=== PATIENT | male | born 1965 | race Caucasian/White ===

== ENCOUNTER → 2020-03-14 | Outpatient (REF) | payer BC ==
[2020-03-14 17:36] LABS: BASO % 0.5 % (0.0-1.0); EOS # 0.3 10^3/uL (0.0-0.5); EOS % 3.2 % (0.0-3.0); HEMATOCRIT 49.3 % (42.0-52.0); HEMOGLOBIN 17.3 g/dl (13.5-17.5); LYMPH # 2.2 10^3/uL (1.5-5.0); LYMPH % 25.7 % (24.0-44.0); MEAN CORPUSCULAR HEMOGLOBIN 35.2 pg (27.0-33.0); MEAN CORPUSCULAR HGB CONC 35.1 g/dl (32.0-36.5); MEAN CORPUSCULAR VOLUME 100.2 fl (80.0-96.0); MONO # 0.8 10^3/uL (0.0-0.8); MONO % 8.6 % (0.0-5.0); NEUTROPHILS # 5.4 10^3/uL (1.5-8.5); NEUTROPHILS % 61.2 % (36.0-66.0); PLATELET COUNT, AUTOMATED 233 10^3/uL (150-450); RED BLOOD COUNT 4.92 10^6/uL (4.30-6.10); WHITE BLOOD COUNT 8.7 10^3/uL (4.0-10.0)
[2020-03-14 17:43] LABS: ALT/SGPT 39 U/L (12-78); BILIRUBIN,TOTAL 1.3 MG/DL (0.2-1.0); BLOOD UREA NITROGEN 8 MG/DL (7-18); C REACTIVE PROTEIN QUANTITATIV < 0.30 MG/DL (0.00-0.30); CALCIUM LEVEL 8.9 MG/DL (8.5-10.1); CARBON DIOXIDE LEVEL 27 MEQ/L (21-32); CHLORIDE LEVEL 103 MEQ/L (98-107); GLOMERULAR FILTRATION RATE > 60.0 (>56); GLUCOSE, FASTING 79 MG/DL (70-100); POTASSIUM SERUM 3.9 MEQ/L (3.5-5.1); SODIUM LEVEL 136 MEQ/L (136-145); TOTAL PROTEIN 7.4 GM/DL (6.4-8.2)
[2020-03-14 18:31] LABS: ERYTHROCYTE SEDIMENTATION RATE 2 mm/hr (0-20)
== END ==
LOC: M SFHCRHEU 11:25
PROVIDERS: ATTEND Internal Medicine
DX: M06.09 Rheumatoid arthritis without rheumatoid factor, multiple sites (principal)

== ENCOUNTER → 2020-05-17 | Outpatient (REF) | payer BC ==
[2020-06-22 16:32] LABS: HEMATOCRIT 50.2 % (42.0-52.0); HEMOGLOBIN 17.5 g/dl (13.5-17.5); MEAN CORPUSCULAR HEMOGLOBIN 35.4 pg (27.0-33.0); MEAN CORPUSCULAR HGB CONC 34.9 g/dl (32.0-36.5); MEAN CORPUSCULAR VOLUME 101.6 fl (80.0-96.0); PLATELET COUNT, AUTOMATED 231 10^3/uL (150-450); RED BLOOD COUNT 4.94 10^6/uL (4.30-6.10)
[2020-07-02 14:12] LABS: ALBUMIN 4.1 GM/DL (3.2-5.2); ALT/SGPT 49 U/L (12-78); BILIRUBIN,TOTAL 1.4 MG/DL (0.2-1.0); BLOOD UREA NITROGEN 8 MG/DL (7-18); CALCIUM LEVEL 9.2 MG/DL (8.5-10.1); CARBON DIOXIDE LEVEL 30 MEQ/L (21-32); CHLORIDE LEVEL 104 MEQ/L (98-107); CREATININE FOR GFR 0.85 MG/DL (0.70-1.30); GLOMERULAR FILTRATION RATE > 60.0 (>56); GLUCOSE, FASTING 101 MG/DL (70-100); POTASSIUM SERUM 4.3 MEQ/L (3.5-5.1); SODIUM LEVEL 136 MEQ/L (136-145); TOTAL PROTEIN 7.4 GM/DL (6.4-8.2)
[2020-08-08 14:02] LABS: ERYTHROCYTE SEDIMENTATION RATE 2 mm/hr (0-20)
== END ==
LOC: M SFHCRHEU 08:14
PROVIDERS: ATTEND Internal Medicine Rheumatology
DX: M06.4 Inflammatory polyarthropathy (principal)

== ENCOUNTER → 2020-06-22 | Outpatient (CLI) | payer BC ==
[2020-06-22 14:30] LABS: ALBUMIN 3.6 GM/DL (3.2-5.2); ALT/SGPT 44 U/L (12-78); BILIRUBIN,TOTAL 1.1 MG/DL (0.2-1.0); BLOOD UREA NITROGEN 10 MG/DL (7-18); CARBON DIOXIDE LEVEL 29 MEQ/L (21-32); CHLORIDE LEVEL 104 MEQ/L (98-107); CHOLESTEROL LEVEL 145 MG/DL (<200); CHOLESTEROL RISK RATIO 2.164 (<5); CREATININE FOR GFR 0.99 MG/DL (0.70-1.30); GLOMERULAR FILTRATION RATE > 60.0 (>56); GLUCOSE, FASTING 93 MG/DL (70-100); HDL CHOLESTEROL 67 MG/DL (>40); LDL CHOLESTEROL 63 MG/DL (<100); NON-HDL-C 78 MG/DL; POTASSIUM SERUM 4.4 MEQ/L (3.5-5.1); SODIUM LEVEL 139 MEQ/L (136-145); TOTAL PROTEIN 6.8 GM/DL (6.4-8.2); TRIGLYCERIDES LEVEL 77 MG/DL (<150)
[2020-06-22 15:51] LABS: HEMOGLOBIN A1c 5.1 %
== END ==
LOC: M PLALAB 09:43
PROVIDERS: ATTEND Family Medicine
DX: F10.10 Alcohol abuse, uncomplicated (principal); Z13.1 Encounter for screening for diabetes mellitus; Z13.220 Encounter for screening for lipoid disorders

== ENCOUNTER → 2020-07-12 | Outpatient (CLI) | payer BC ==
--- NOTE | 2020-07-18 09:50 | REP ---
CT CHEST WITHOUT CONTRAST: LOW-DOSE SCREENING EXAM HISTORY: 40-pack year smoking history. COMPARISON: No comparison chest imaging. FINDINGS: Digital preliminary human factors ergonomist radiograph is unremarkable. There is an old healed fracture of the right posterior 11th rib. Lung smith are clear. There is no evidence of pulmonary nodule, mass, or infiltrate. No pleural effusion is seen. IMPRESSION: Lung-RADS Category 1 findings. Repeat screening exam suggested in one year. JASPREETD
== END ==
LOC: M RAD 08:40
PROVIDERS: ATTEND Family Medicine
DX: F17.218 Nicotine dependence, cigarettes, with other nicotine-induced disorders (principal); Z12.2 Encounter for screening for malignant neoplasm of respiratory organs

== ENCOUNTER → 2020-10-22 | Outpatient (CLI) | payer BC ==
[~2020-10-22] MED LIST: ENBR50IN6 IM; FAMO1TAB11 PO; MEDR4PAK PO; SILD50TA2 PO
== END ==
LOC: M LABSMTC 08:07
PROVIDERS: ATTEND Anesthesiology
DX: Z01.812 Encounter for preprocedural laboratory examination (principal); Z20.822 Contact with and (suspected) exposure to COVID-19

== ENCOUNTER 2020-10-27 08:36 | Day surgery (SDC) | payer BC ==
[~2020-10-27] VITALS: Ht 175.3 cm; Wt 86.6 kg
[~2020-10-27 08:36] MED LIST changes: +LIDOCAINE 2% 100MG/5ML SDV (FOR ANES.) As Ordered ONE; +NS 1,000 ML IV ONE; +propofoL 200 MG/20 ML VIAL As Ordered ONE
--- OUTSIDE RECORDS SUMMARY | 2020-10-27 08:39 | CCD | Continuity of Care Document ---
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 10/16/2019 Hydrocele HOSSEIN Hand Onset: 2019 Cyst of epididymis HOSSEIN Hand Onset: 2019 Social History Type Date Description Comments Sex Unknown Tobacco Use Start: Unknown Never Smoked Cigarettes Tobacco Use Start: Unknown Never Smoked Cigars Tobacco Use Start: Unknown Never Smoked A Pipe Tobacco Use Start: Unknown Never Used Smokeless Tobacco ETOH Use Consumes 7 beers per week Tobacco Use Start: Unknown Heavy tobacco smoker (more than 10 cigarettes/day) 1 pack per day Allergies, Adverse Reactions, Alerts Active Allergies Reaction Severity Comments Date NKDA 06/07/2020 NKFA 06/07/2020 NKEA 06/07/2020 Medications Active Medications SIG Qnty Indications Ordering Provide r Date Viagra 50mg Tablets 1 tab by mouth as needed. do not take more than once every 48 hours 6tabs Antonio Cavanaugh M.D. 09/26/2020 Enbrel Mini 50mg/ml Solution Cartr idge 1 injection once every week Unknown Methotrexate 2.5mg Tablets 9 tabs once a week Unknown Methylprednisolone 4mg Tablets Unknown Folic Acid 1mg Tablets 1 by mouth every day Unknown Famotidine 10mg Tablets 10 mg by mouth twice a day Unknown Immunizations Description No Information Available Vital Signs Date Vital Result Comment 09/26/2020 10:34am BP Systolic 128 mmHg BP Diastolic 74 mmHg Heart Rate 62 /min Body Temperature 96.8 F O2 % BldC Oximetry 98 % Weight 196.00 lb Weight 88.906 kg 08/16/2020 10:23am BP Systolic 126 mmHg BP Diastolic 84 mmHg Heart Rate 105 /min Body Temperature 97.5 F Respiratory Rate 20 /min O2 % BldC Oximetry 98 % Results Test Acquired Date Facility Test Result H/L Range Note Inhouse Ua 09/26/2020 In Office Ua Color rust Ua Appearance clear Spec [facility] 1.020 Ua PH Test Strip 5 Leukocytes trace Ua Nitrate neg Ua Protein neg Inhouse Glucose neg Ua Ketones neg Urobilinogen neg Ua Bilirubin + Blood neg Inhouse Ua 08/16/2020 In Office Ua Color yellow Ua Appearance clear Spec [facility] 1.005 Ua PH Test Strip 5 Leukocytes neg Ua Nitrate neg Ua Protein neg Inhouse Glucose neg Ua Ketones neg Urobilinogen neg Ua Bilirubin neg Blood neg Inhouse Ua 06/07/2020 In Office Ua Color nina Ua Appearance clear Spec [facility] 1.010 Ua PH Test Strip 7 Leukocytes neg Ua Nitrate neg Ua Protein trace Inhouse Glucose neg Ua Ketones neg Urobilinogen neg Ua Bilirubin neg Blood neg Xray 06/07/2020 [facility] [address] [id number] [phone] Scrotal <pending> Procedures Description No Information Available Medical Devices Description No Information Available Encounters Description No Information Available Assessments Date Code Description Provider 08/16/2020 N50.3 Cyst of epididymis HOSSEIN [place] 08/16/2020 N43.3 Hydrocele, unspecified HOSSEIN Hand 08/16/2020 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 06/07/2020 F17.210 Nicotine dependence, cigarettes, uncomplicated Antonio Cavanaugh M.D. Plan of Treatment Future Appointment(s):* 11/28/2020 9:45 am - Urology Resource Schedule at [facility] 08/16/2020 - HOSSEIN Hand* N50.3 Cyst of epididymis* Comments:* 54-year-old male with epididymal cysts presents to the clinic ~2 weeks s/p bilateral hydrocelectomy, right epididymal cyst removal, partial right epididymectomy, and removal of left lipoma of the cord for post op follow up.Patient underwent procedure on 08/04/20 and tolerated it well without any difficulties.Today he reports minimal scrotal swelling and induration, otherwise doing well.Physical examination in office today revealed that the surgical incisions are healing well. Induration and mild-moderate swelling noted, left greater than right, consistent with post op changes. Minimal tenderness noted with palpation. Sutures still in place without any signs of infection.Urinalysis in office today is unremarkable.Pathology reveals benign epididymal tissue with dilated tubules containing numerous sperms and fibro- membranous tissue suggest of hydrocele. Post procedure guidelines were discussed in detail with the patient that it will take 6 weeks for complete healing of the site of incision.He was advised to continue Motrin and scrotal support as needed for discomfort.Patient voiced understanding and agreement with the plan of care. Patient will follow up in 6 weeks or as needed for po stoperative wound check. * Follow up:* 6 Weeks * N43.3 Hydrocele, unspecified* Comments:* Same as above. 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 * Follow up:* 6 Weeks Functional Status Description No Information Available Mental Status Description No Information Available Referrals Description No Information Available
--- OUTSIDE RECORDS SUMMARY | 2020-10-27 08:39 | CCD ---
Author Author [facility] Organization [facility] Address Unknown Phone Unavailable Care Team Providers Care Molder Operator Name Role Phone Rhys Betina Unavailable PROBLEMS Type Condition ICD9-CM Code [id number] Code Onset Dates Condition S tatus SNOMED Code Notes Problem Raynaud's disease without gangrene I73.00 Activ e [id number] Problem Tobacco use disorder F17.200 Active 011198408 Problem Inflammatory polyarthritis M06.4 Active 27548 3000 Problem Rheumatoid arthritis of multiple sites w ith 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 factor M06.09 Active 701673280 ALLERGIES No Known Allergies ENCOUNTERS from 1965 to 2020-09-27 Encounter Location Date Provider Diagnosis [facility] Rheumatology [address] [place] [address] Sep, Betina Joiner IMMUNIZATIONS No Information SOCIAL HISTORY Tobacco Use: Social History Observation Description Date Details (start date - stop date) Current Smoker Sex Assigned At : Social History Observation Description Sex Assigned At Unknown Alcohol Screening: Question Answer Notes Did you have a drink containing alcohol in the past year? Ye s Points 4 Interpretation Positive How often did you have six or more drinks on one occas ion in the past year? Less than monthly (1 point) How many drinks did you have on a typica l day when you were drinking in the past year? 1 or 2 (0 points) How often did you have a drink containing alcohol in t he past year? Two to three times per week (3 points) Tobacco Use: Question Answer Notes Are you a: current smoker How many cigarettes a day do you smoke? 11-20 REASON FOR REFERRAL No Information VITAL SIGNS No information MEDICATIONS Medication SIG (Take, Route, Frequency, Duration) Notes Start Da te End Date Status Methotrexate Sodium 2.5 MG 4 tablets as directed Orally Once weekly for 30 Days Mar, Not-Taking Folic Acid 1 MG 1 tablet Orally Once a day for 30 day(s) 0 9 Mar, 2020 Not-Taking Medrol 4 MG 1-2 tablet Orally bid for 30 Active Enbrel Mini 50 MG/ML 1 ml Subcutaneous Once weekly for 90 days Oct, Active Naproxen 500 MG 1 tablet with food or milk as needed Orally every 12 hrs Not-Taking Sulfasalazine 500 MG 1 tablet by mouth twice daily for 30 Days Nov, Not-Taking Hydroxychloroquine Sulfate 200 MG 2 tablets by mouth Daily for 3 0 Days Nov, Not-Taking PROCEDURES No Information RESULTS No Results REASON FOR VISIT Enbrel mini 50mg MEDICAL (GENERAL) HISTORY Type Description Date Medical History scrotal cysts Surgical History Left Ankle 2001 Surgical History scrotal surgery 08/04/2020 Goals Section No Information Health Concerns No Information MEDICAL EQUIPMENT No Information MENTAL STATUS No Information FUNCTIONAL STATUS No Information ASSESSMENTS No Information PLAN OF TREATMENT Medication Medication Name Sig Start Date Stop Date Enbrel Mini 50 MG/ML 1 ml Subcutaneous Once weekly for 90 days 3 0 Oct, 2019 Insurance Providers Payer Name Payer Address Payer Phone Insured Name Patient Relati onship to Insured Coverage Start Date Coverage End Date [employer] PPO [id number] [address] KALANI BYRNES
--- OUTSIDE RECORDS SUMMARY | 2020-10-27 08:39 | CCD ---
Author Author [facility] Organization [facility] Address Unknown Phone Unavailable Care Team Providers Care Environmental Officer Name Role Phone Rhys Betina Unavailable PROBLEMS Type Condition ICD9-CM Code [id number] Code Onset Dates Condition S tatus SNOMED Code Notes Problem Raynaud's disease without gangrene I73.00 Activ e [id number] Problem Tobacco use disorder F17.200 Active 815734741 Problem Inflammatory polyarthritis M06.4 Active 03493 3000 Problem Rheumatoid arthritis of multiple sites w ith 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 factor M06.09 Active 271163243 ALLERGIES No Known Allergies ENCOUNTERS from 1965 to 2020-09-23 Encounter Location Date Provider Diagnosis [facility] Rheumatology [address] [place] [address] Sep, Betina Joiner Rheumatoid arthritis of multiple sites w ith 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 factor M06.09 IMMUNIZATIONS No Information SOCIAL HISTORY Tobacco Use: [...] No Results REASON FOR VISIT Enbrel mini MEDICAL (GENERAL) HISTORY Type Description Date Medical History scrotal cysts Surgical History Left Ankle 2001 Surgical History scrotal surgery 08/04/2020 Goals Section No Information Health Concerns No Information MEDICAL EQUIPMENT No Information MENTAL STATUS No Information FUNCTIONAL STATUS No Information ASSESSMENTS Encounter Date Diagnosis Assessment Notes Treatment Notes Treatm ent Clinical Notes Sep, [facility] with 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 factor (ICD-10 - M06.09) PLAN OF TREATMENT Medication Medication Name Sig Start Date Stop Date Enbrel Mini 50 MG/ML 1 ml Subcutaneous Once weekly for 90 days 3 Oct, 2019 Insurance Providers Payer Name Payer Address Payer Phone Insured Name Patient Relati onship to Insured Coverage Start Date Coverage End Date [facility] [id number] [address] KALANI BYRNES
--- OUTSIDE RECORDS SUMMARY | 2020-10-27 08:40 | CCD ---
Author Author [facility] Organization [facility] Address Unknown Phone Unavailable Care Team Providers Care Merchandising Lead Name Role Phone Rhys Betina Unavailable PROBLEMS Type Condition ICD9-CM Code [id number] Code Onset Dates Condition S tatus SNOMED Code Notes Problem Raynaud's disease without gangrene I73.00 Activ e 018818149 Problem Tobacco use disorder F17.200 Active 382137054 Problem Inflammatory polyarthritis M06.4 Active 03563 3000 Problem Rheumatoid arthritis of multiple sites w ith 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 factor M06.09 Active 645788309 ALLERGIES No Known Allergies ENCOUNTERS from 1965 to 2020-09-19 Encounter Location Date Provider Diagnosis [facility] Rheumatology [address] [place] [address] Sep, Betina Joiner IMMUNIZATIONS No Information SOCIAL [...] Notes Start Da te End Date Status Naproxen 500 MG 1 tablet with food or milk as needed Orally every 12 hrs Not-Taking Folic Acid 1 MG 1 tablet Orally Once a day for 30 day(s) 0 9 Mar, 2020 Not-Taking Medrol 4 MG 1-2 tablet Orally bid for 30 Active Methotrexate Sodium 2.5 MG 4 tablets as directed Orally Once weekly for 30 Days Mar, Not-Taking Enbrel Mini 50 MG/ML 1 ml Subcutaneous Once weekly for 90 day(s) Oct, Active Sulfasalazine 500 MG 1 tablet by mouth twice daily for 30 Days Nov, Not-Taking Hydroxychloroquine Sulfate 200 MG 2 tablets by mouth Daily for 3 0 Days Nov, Not-Taking PROCEDURES No Information RESULTS No Results REASON FOR VISIT Enbrel refill MEDICAL (GENERAL) HISTORY Type Description Date Medical [...] 1 ml Subcutaneous Once weekly for 90 day(s) Oct, Insurance Providers Payer Name Payer Address Payer Phone Insured Name Patient Relati onship to Insured Coverage Start Date Coverage End Date [employer] PPO [id number] [address] KALANI BYRNES
--- OUTSIDE RECORDS SUMMARY | 2020-10-27 08:40 | CCD | Continuity of Care Document ---
Author Author Wade HASKINS Organization Unknown Address [address] [facility], [address] [place] [address] Phone [phone] Care Team Providers Care Sheet Metal Worker Supervisor Name Role Phone Krista Mayers M.D. AUTM [phone] AUTM Unavailable Problems Description No Active Problems Social History Type Date Description Comments Sex Unknown ETOH Use 5 A Week Tobacco Use Start: Unknown Smokes 1 Pack A Day Tobacco Use Start: Unknown Report Cessation Counseling Was Provided Allergies, Adverse Reactions, Alerts Description No Known Drug Allergies Medications Active Medications SIG Qnty Indications Ordering Provide r Date Suprep Bowel Prep Kit 17.5-3.13-1.6GM/177ML Solution take per doctor's bowel prep instructions. 354ml Z12.1 1 Abdiaziz Weiss MD 09/20/[address] take 4 tabs by mouth prior to procedure per instructions. 4tabs Z12.11 Abdiaziz Weiss MD 09/20/2020 Enbrel 50mg/ml Soln Prefill Syring e 1 injection weekly Unknown Medrol 4mg Tablets 1-2 castro ly as needed Unknown Immunizations Description No Information Available Vital Signs Date Vital Result Comment 09/20/2020 1:13pm BP Systolic 128 mmHg BP Diastolic 86 mmHg Height 69 inches 5'9" Weight 195.00 lb BMI (Body Mass Index) 28.8 kg/m2 [place] Body Weight 160 lb Weight 88.452 kg BSA (Body Surface Area) 2.04 m2 Results Description No Information Available Procedures Description No Information Available Medical Devices Description No Information Available Encounters Description No Information Available Assessments Date Code Description Provider 09/20/2020 Z12.11 Encounter for screening for natasha gnant neoplasm of colon CYNTHIA Mihcaels 09/20/2020 K21.9 Gastro-esophageal reflux disease without esophagitis CYNTHIA Michaels Plan of Treatment 09/20/2020 - CYNTHIA Michaels* Z12.11 Encounter for screening for malignant neoplasm of colon * K21.9 Gastro-esophageal reflux disease without esophagitis * * New Medication:* Suprep Bowel Prep Kit 17.5-3.13-1.6 GM/177ML * Dulcolax 5 mg * New Orders:* Colonoscopy, Ordered: 09/20/20 * Comments:* Will arrange for colonoscopy. Reviewed risks and benefits of the procedure, as well as other options, with the patient. Bowel prep procedure was discussed with patient, as well as risks and side effects associated with the bowel prep. Patient verbalized understanding of all of the above and is in agreement to proceed. Patient will seek medical attention for any acute changes. Will monitor. * Follow up:* As scheduled, sooner if needed. Functional Status Description No Information Available Mental Status Description No Information Available Referrals Refer to Reason for Referral Status Appt Date Moy Urbina M.D. COLO SCREENING Scheduled 09/[address] [place] [address], [address] [place] [address] [phone]
--- OUTSIDE RECORDS SUMMARY | 2020-10-27 08:40 | CCD ---
Author Author [facility] Organization [facility] Address Unknown Phone Unavailable Care Team Providers Care Customer Loyalty Representative Name Role Phone Krista Mayers Unavailable PROBLEMS Type Condition ICD9-CM Code WEP68-TK Code Onset Dates Condition S tatus SNOMED Code Notes Problem Inflammatory polyarthritis M06.4 Active 19215 3000 Problem Rheumatoid arthritis of multiple sites w ith 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 factor M06.09 Active 991926467 ALLERGIES No Known Allergies ENCOUNTERS from 1965 to 2020-08-10 Encounter Location Date Provider Diagnosis [address] [address] Aug, Krista Riana Screening for colon cancer Z12.11 IMMUNIZATIONS No Information SOCIAL HISTORY Tobacco Use: [...] many cigarettes a day do you smoke? 11 REASON FOR REFERRAL No Information VITAL SIGNS No information MEDICATIONS Medication SIG (Take, Route, Frequency, Duration) Start Date En d Date Status Medrol 4 MG 1-2 tablet Orally bid for 30 Active Sulfasalazine 500 MG 1 tablet by mouth twice daily for 30 Days 2019 Not-Taking Naproxen 500 MG 1 tablet with food or milk as needed Orally every 1 2 hrs Not-Taking Folic Acid 1 MG 1 tablet Orally Once a day for 30 day(s) Mar, Not-Taking Enbrel Mini 50 MG/ML 1 ml Subcutaneous Once weekly for 30 day(s) Oct, Active Methotrexate Sodium 2.5 MG 4 tablets as directed Orally Once weekly for 30 Days Mar, Not-Taking Hydroxychloroquine Sulfate 200 MG 2 tablets by mouth Daily f or 30 Days Nov, Not-Taking PROCEDURES No Information RESULTS No Results REASON FOR VISIT Colonoscopy referral MEDICAL (GENERAL) HISTORY Type Description Date Medical History scrotal cysts Surgical History Left Ankle 2002 Goals Section No Information Health Concerns No Information MEDICAL EQUIPMENT No Information MENTAL STATUS No Information FUNCTIONAL STATUS No Information ASSESSMENTS Encounter Date Diagnosis Notes Aug, Screening for colon cancer (ICD-10 - Z12 .11) PLAN OF TREATMENT Medication Medication Name Sig Start Date Stop Date Medrol 4 MG 1-2 tablet Orally bid for 30 Next Appt Details Provider Name:Betina Joiner, 2020-08 09:00:00 AM, [address] [place] [address], [address], Insurance Providers Payer Name Payer Address Payer Phone Insured Name Patient Relati onship to Insured Coverage Start Date Coverage End Date [employer] PPO [id number] [address] KALANI BYRNES self
--- OUTSIDE RECORDS SUMMARY | 2020-10-27 08:40 | CCD ---
Author Author [facility] Organization [facility] Address Unknown Phone Unavailable Care Team Providers Care Business Loan Processor Name Role Phone Betina Joiner Unavailable PROBLEMS Type Condition ICD9-CM Code [id number] Code Onset Dates Condition S tatus SNOMED Code Notes Problem Inflammatory polyarthritis M06.4 Active 89134 3000 Problem Rheumatoid arthritis of multiple sites w ith 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 factor M06.09 Active 172267476 ALLERGIES No Known Allergies ENCOUNTERS from 1965 to 2020-07-28 Encounter Location Date Provider Diagnosis [facility] Rheumatology [address] [place] [address] Jul, Betina Joiner Rheumatoid arthritis of multiple sites w ith 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 factor M06.09 and Scrotal cyst L72.9 IMMUNIZATIONS No Information SOCIAL HISTORY Tobacco Use: [...] many cigarettes a day do you smoke? - REASON FOR REFERRAL No Information VITAL SIGNS Weight 194.4 lbs Jul, Weight-kg 88.2 kg Jul, Height 69 in Jul, BMI 28.70 kg/m2 Jul, Heart Rate 121 /min Jul, Respiratory Rate 20 /min Jul, Temperature 97.5 degrees Fahrenheit Jul, Oximetry 97% Jul, Blood pressure systolic 122 mm Hg Jul, Blood pressure diastolic 64 mm Hg Jul, MEDICATIONS Medication SIG (Take, Route, Frequency, Duration) [...] 200 MG 2 tablets by mouth Daily or 30 Days Nov, Not-Taking PROCEDURES No Information RESULTS No Results REASON FOR VISIT Clearance for Urology Procedure MEDICAL (GENERAL) HISTORY Type Description Date Medical History scrotal cysts Surgical History Left Ankle 2002 Goals Section No Information Health Concerns No Information MEDICAL EQUIPMENT No Information MENTAL STATUS No Information FUNCTIONAL STATUS No Information ASSESSMENTS Encounter Date Diagnosis Notes Jul, Scrotal cyst (ICD-10 - L72.9) Jul, [facility] with 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 factor (ICD-10 - M06.09) PLAN OF TREATMENT Medication Medication Name Sig Start Date Stop Date Medrol 4 MG 1-2 tablet Orally bid for 30 Treatment Notes Assessment Notes Clinical Notes Rheumatoid arthritis of multiple sites with negative r heumatoid factor Rheumatoid arthritis is still active.He feels the Enbrel is working but I believe he needs an additional agent.After his surgery, consider adding injectable methotrexate. Injectable methotrexate can often have fewer GI side effects than oral methotrexate.Another alternative would be leflunomide.He will follow-up in the third or fourth week of August to review these alternatives. Scrotal cyst He is clear from a rheumatol ogy point of view to proceed with surgery.His PCP is going to do a preop as well.There is no need for cervical spine x-rays since his RA disease duration is short and he has never experienced neck pain. Disease has been focused to the hands and wrists.As indicated above, he will hold Enbrel for 2 weeks before and 2 weeks after surgery.Possible that he may need to increase his dose of Medrol slightly because of severe pain and inflammation.Currently he is usually taking 8 mg daily, if needed he can take up to 12 mg daily on an occasional basis. Next Appt Details third or fourth week in August Reason: Provider Name:Betina Joiner, 2020-08 09:00:00 AM, [address] [place] [address], [address], Insurance Providers Payer Name Payer Address Payer Phone Insured Name Patient Relati onship to Insured Coverage Start Date Coverage End Date [employer] PPO [phone] [address] KALANI MCGRATH self
--- OUTSIDE RECORDS SUMMARY | 2020-10-27 08:40 | CCD ---
Author Author [facility] Organization [facility] Address Unknown Phone Unavailable Care Team Providers Care Plaster Patternmaker Name Role Phone Rhys Betina Unavailable PROBLEMS Type Condition ICD9-CM Code [id number] Code Onset Dates Condition S tatus SNOMED Code Notes Problem Raynaud's disease without gangrene I73.00 Activ e 842284315 Problem Tobacco use disorder F17.200 Active 481051080 Problem Inflammatory polyarthritis M06.4 Active 12995 3000 Problem Rheumatoid arthritis of multiple sites w ith 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 factor M06.09 Active 378988479 ALLERGIES No Known Allergies ENCOUNTERS from 1965 to 2020-08-25 Encounter Location Date Provider Diagnosis [facility] Rheumatology [address] [place] [address] Aug, Betina Joiner IMMUNIZATIONS No Information SOCIAL HISTORY [...] many cigarettes a day do you smoke? 08-25 REASON FOR REFERRAL No Information VITAL SIGNS [...] Information RESULTS No Results REASON FOR VISIT [employer] patient assistance Recert 2020 MEDICAL (GENERAL) HISTORY Type Description Date Medical [...] Coverage Start Date Coverage End Date [employer] PPO [id number] [address] KALANI BYRNES
--- OUTSIDE RECORDS SUMMARY | 2020-10-27 08:40 | CCD ---
Author Author [facility] Organization [facility] Address Unknown Phone Unavailable Care Team Providers Care Md Physician Dermatologist Name Role Phone Rhys Betina Unavailable PROBLEMS Type Condition ICD9-CM Code [id number] Code Onset Dates Condition S tatus SNOMED Code Notes Problem Raynaud's disease without gangrene I73.00 Activ e 104163187 Problem Tobacco use disorder F17.200 Active 446424847 Problem Inflammatory polyarthritis M06.4 Active 55415 3000 Problem Rheumatoid arthritis of multiple sites w ith 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 factor M06.09 Active 501592285 ALLERGIES No Known Allergies ENCOUNTERS from 1965 to 2020-08-25 Encounter Location Date Provider Diagnosis [facility] Rheumatology [address] [place] [address] Aug, Betina Joiner IMMUNIZATIONS No Information SOCIAL [...] Information RESULTS No Results REASON FOR VISIT [place] Enbrel mini 50mg/ml MEDICAL (GENERAL) HISTORY Type Description Date Medical [...] Coverage End Date [employer] PPO [id number] [address] KALANI BYRNES
--- OUTSIDE RECORDS SUMMARY | 2020-10-27 08:40 | CCD ---
Author Author [facility] Organization [facility] Address Unknown Phone Unavailable Care Team Providers Care Associate Professor Of Management Name Role Phone Joiner Betina Unavailable PROBLEMS Type Condition ICD9-CM Code [id number] Code Onset Dates Condition S tatus SNOMED Code Notes Problem Raynaud's disease without gangrene I73.00 Activ e [id number] Problem Tobacco use disorder F17.200 Active 775639749 Problem Inflammatory polyarthritis M06.4 Active 46681 3000 Problem Rheumatoid arthritis of multiple sites w ith 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 factor M06.09 Active 134971762 ALLERGIES No Known Allergies ENCOUNTERS from 1965 to 2020-08-29 Encounter Location Date Provider Diagnosis [facility] [address] [place] [address] Aug, Betina Joiner Rheumatoid arthritis of multiple sites w ith 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 factor M06.09 ; Raynaud's disease without gangrene I73.00 ; Tobacco use disorder F17.200 and Long-term use of high-risk medication Z79.899 IMMUNIZATIONS No Information SOCIAL HISTORY Tobacco Use: [...] FOR REFERRAL No Information VITAL SIGNS Weight 193.8 lbs Aug, Weight-kg 87.9 kg Aug, Height 69 in Aug, BMI 28.62 kg/m2 Aug, Heart Rate 125 /min Aug, Respiratory Rate 20 /min Aug, Temperature 97.7 degrees Fahrenheit Aug, Oximetry 96% Aug, Blood pressure systolic 122 mm Hg Aug, Blood pressure diastolic 66 mm Hg Aug, MEDICATIONS Medication SIG (Take, Route, Frequency, Duration) Notes Start Da te End Date Status Naproxen 500 MG 1 tablet with food or milk as needed Orally every 12 hrs Not-Taking Folic Acid 1 MG 1 tablet Orally Once a day for 30 day(s) 0 Mar, Not-Taking Medrol 4 MG 1-2 tablet Orally [...] Information RESULTS No Results REASON FOR VISIT August follow MEDICAL (GENERAL) HISTORY Type Description Date Medical History scrotal cysts Surgical History Left Ankle 2001 Surgical History scrotal surgery 08/04/2020 Goals Section No Information Health Concerns No Information MEDICAL EQUIPMENT No Information MENTAL STATUS No Information FUNCTIONAL STATUS No Information ASSESSMENTS Encounter Date Diagnosis Assessment Notes Treatment Notes Treatm ent Clinical Notes Aug, Rheumatoid arthritis of [facility] sites with 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 factor (ICD-10 - M06.09) Rheumatoid arthritis is still objectively moderately active but at this time he declines to add any additional medications. I offered him option of adding oral leflunomide or injectable methotrexate. I also offered him the option of switching Enbrel to a different biologic drug. He states he feels he is doing well with his current regimen, and doesn't want to make any changes. He wants to stretch out the time interval between now and his next office visit. Follow-up visit in 4 months with lab before. 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 I strongly advised that he quit smoking as that will help both issues. Aug, Tobacco use disorder (ICD-10 - F17.200) We reviewed that tobacco use worsens rheumatoid arthritis disease activity and he should work on quitting or cutting down. Aug, Long-term use of high-risk medication (ICD-10 - Z79.899) On Enbrel, no live vaccines but killed vaccines are safe and recommended as indicated. That would include flu shot, Pneumovax, and Shingrix shingles vaccine if he had chickenpox. Monitor labs approximately 2-3 times yearly on Enbrel. Aug, Other Patient instructions : Continue Enbrel and Medrol 1 pill per day Follow up 4 months with lab before Work on cutting down or quitting smoking PLAN OF TREATMENT Medication Medication Name Sig Start Date Stop Date Enbrel Mini 50 MG/ML 1 ml Subcutaneous Once weekly for 90 day(s) Oct, Treatment Notes Assessment Notes Clinical Notes Rheumatoid arthritis of multiple sites with negative r heumatoid factor Rheumatoid arthritis is still objectively moderately active but at this time he declines to add any additional medications.I offered him option of adding oral leflunomide or injectable methotrexate.I also offered him the option of switching Enbrel to a different biologic drug.He states he feels he is doing well with his current regimen, and doesn't want to make any changes.He wants to stretch out the time interval between now and his next office visit.Follow-up visit in 4 months with lab before. 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 Tobacco use disorder We reviewed that tobacco use worsens rheumatoid arthritis disease activity and he should work on quitting or cutting down. Long-term use of high-risk medication On Enbrel, no li ve vaccines but killed vaccines are safe and recommended as indicated.That would include flu shot, Pneumovax, and Shingrix shingles vaccine if he had chickenpox.Monitor labs approximately 2-3 times yearly on Enbrel. Future Test Test Name Order Date CBC with Differential [id number] C REACTIVE PROTEIN QUANTITATIV (At [facility]) [id number] Comprehensive Metabolic Profile (CMP) [id number] ERYTHROCYTE SEDIMENTATION RATE [id number] Next Appt Details 4 Months Reason: Insurance Providers Payer Name Payer Address Payer Phone Insured Name Patient Relati onship to Insured Coverage Start Date Coverage End Date [facility] BCBS PPO [id number] [address] KALANI BYRNES
--- OUTSIDE RECORDS SUMMARY | 2020-10-27 08:40 | CCD | Continuity of Care Document ---
Author Author Wade HOLDEN Organization Unknown Address [facility] [place] [address] Phone [phone] Care Team Providers Care Carding Supervisor Name Role Phone [facility] [phone] Problems Active Problems Provider Date Rheumatoid arthritis [...] SIG Qnty Indications Ordering Provide r Date Enbrel Mini 50mg/ml Solution Cartr idge 1 injection once every week Unknown Methotrexate 2.5mg Tablets 9 tabs once a week Unknown Methylprednisolone 4mg Tablets Unknown Folic Acid 1mg Tablets 1 by mouth every day Unknown Famotidine 10mg Tablets 10 mg by mouth twice a day Unknown Immunizations Description No Information Available Vital Signs Date Vital Result Comment 08/16/2020 10:23am BP Systolic 126 mmHg BP Diastolic 84 mmHg Heart Rate 105 /min Body Temperature 97.5 F Respiratory Rate 20 /min O2 % BldC Oximetry 98 % 06/07/2020 3:16pm BP Systolic 130 mmHg BP Diastolic 84 mmHg Heart Rate 100 /min Respiratory Rate 20 /min O2 % BldC Oximetry 97 % Weight 190.00 lb Weight 86.184 kg Results Test Acquired Date Facility Test Result H/L Range Note Inhouse Ua 08/16/2020 In Office [facility] Color yellow Ua Appearance clear Spec [place] 1.005 Ua PH Test Strip 5 Leukocytes neg Ua Nitrate neg Ua Protein neg Inhouse Glucose neg Ua Ketones neg Urobilinogen neg Ua Bilirubin neg Blood neg Inhouse Ua 06/07/2020 In Office Ua Color nina Ua Appearance clear Spec [place] 1.010 Ua PH Test Strip 7 Leukocytes neg Ua Nitrate neg Ua Protein trace Inhouse Glucose neg Ua Ketones neg Urobilinogen neg Ua Bilirubin neg Blood neg Xray 06/07/2020 [facility] [address] [place], [place] [id number] [phone] [place] Scrotal <pending> Procedures Description No Information Available Medical Devices Description No Information Available Encounters Type Date Location Provider Dx Diagnosis Office Visit 08/16/2020 10:30a [facility] HOSSEIN Mcdaniel N50.3 Cyst of epididymis N43.3 Hydrocele, unspecified 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 06/07/2020 F17.210 Nicotine dependence, cigarettes, uncomplicated Antonio Cavanaugh M.D. Plan of Treatment Future Appointment(s):* 09/26/2020 10:30 am - Urology Resource Schedule at [facility] 08/16/2020 - Toña R. 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
--- OUTSIDE RECORDS SUMMARY | 2020-10-27 08:40 | CCD | Continuity of Care Document ---
Author Author [facility], [employer] Unknown Address [address] [place] [address] Phone [phone] Care Team Providers Care Agent Producer Name Role Phone [facility] [phone] Problems Active Problems Provider Date Rheumatoid arthritis HOSSEIN Hand Onset: 06/07 Social History Type Date Description Comments Sex [...] Available Vital Signs Date Vital Result Comment 06/07/2020 3:16pm BP Systolic 130 mmHg BP Diastolic 84 mmHg Heart Rate 100 /min Respiratory Rate 20 /min O2 % BldC Oximetry 97 % Weight 190.00 lb Weight 86.184 kg Results Test Acquired Date Facility Test Result H/L Range Note Inhouse Ua 06/07/2020 In Office Ua Color nina Ua Appearance clear Spec [place] 1.010 Ua PH Test Strip 7 Leukocytes neg Ua Nitrate neg Ua Protein trace Inhouse Glucose neg Ua Ketones neg Urobilinogen neg Ua Bilirubin neg Blood neg Xray 06/07/2020 [facility] [address] [place] [address] [phone] [place] Scrotal <pending> Procedures Description No Information Available Medical Devices Description No Information Available Encounters Description No Information Available Assessments Date Code Description Provider 06/07/2020 N50.3 Cyst of epididymis Antonio Cavanaugh M.D. 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 06/07/2020 F17.210 Nicotine dependence, cigarettes, uncomplicated Antonio Cavanaugh M.D. Plan of Treatment Future Appointment(s):* 08/16/2020 10:30 am - Urology Resource Schedule at [facility] * 08/04/2020 6:00 am - Antonio Cavanaugh M.D. at [facility] 06/07/2020 - Antonio Cavanaugh M.D.* N50.3 Cyst of epididymis* Comments:* Patient presents to the clinic today for evaluation and management of testicular mass.Physical examination showed 4 cm x 3 cm mass in the left scrotum consistent with left epididymal cyst and 2 cm x 2 cm indurated mass in the right side corresponding to right epididymal cyst. Anatomy and functions of male genitourinary system were reviewed with the patient.Pathophysiology of epididymal cyst and scrotal masses were reviewed with the patient at length. Various treatment modalities and workups were discussed with the patient.We will schedule this patient for scrotal ultrasound and if findings confirm above, will proceed with bilateral scrotal exploration with removal of bilateral epididymal cysts. Pre and post procedural guidelines were discussed with the patient.Changes will be made if necessary based on sonogram.Patient was advised to call or RTC if he develops any new concerns or complaints.Patient verbalized understanding and agreed to the care plan. All of his questions were answered. Follow up to be decided after the procedure is done. 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 * F17.210 Nicotine dependence, cigarettes, uncomplicated* Comments:* It is very important that you quit smoking immediately as this will not only help with improving the quality of your health, but also in achieving better surgical results. You are also at much higher risk for multiple genitourinary cancers if you continue to smoke. If you need help quitting, you can call the [facility] Smokers' Quitline at 6-423-PFQUIT. Time spent 3-5 minutes. Functional Status Description No Information Available Mental Status Description No Information Available Referrals Description No Information Available
--- OUTSIDE RECORDS SUMMARY | 2020-10-27 08:40 | CCD | Continuity of Care Document ---
Author Author [facility] Resource Schedule, Seferino rodriguez [facility] Unknown Address [address] [place] [address] Phone [phone] Care Team Providers Care Audio Experience Expert Name Role Phone [facility] [phone] Problems Active Problems Provider Date Rheumatoid arthritis [...] Ua Color yellow Ua Appearance clear Spec [place] 1.005 Ua PH Test Strip 5 Leukocytes neg Ua Nitrate neg Ua Protein neg Inhouse Glucose neg Ua Ketones neg Urobilinogen neg Ua Bilirubin neg Blood neg Inhouse Ua 06/07/2020 In Office Ua Color nina Ua Appearance clear Spec [place] 1.010 Ua PH Test Strip 7 Leukocytes neg Ua Nitrate neg Ua Protein trace Inhouse Glucose neg Ua Ketones neg Urobilinogen neg Ua Bilirubin neg Blood neg Xray 06/07/[address] [facility] [address] [place], [place] [id number] [phone] [place] Scrotal <pending> Procedures Description No Information Available Medical Devices Description No Information Available Encounters Description No Information Available Assessments Date Code Description Provider 08/16/2020 N50.3 Cyst of epididymis Toña Hearn, HOSSEIN 08/16/2020 N43.3 Hydrocele, unspecified Toña Cevallos, HOSSEIN 08/16/2020 D17.6 Benign lipomatous neoplasm of sp ermatic cord Toña Cevallos, HOSSEIN 06/07/2020 N50.3 Cyst of epididymis Antonio Cavanaugh M.D. 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 06/07/2020 F17.210 Nicotine dependence, cigarettes, uncomplicated Antonio Cavanaugh M.D. Plan of Treatment No Information Available Functional Status Description No Information Available Mental Status Description No Information Available Referrals Description No Information Available
--- OUTSIDE RECORDS SUMMARY | 2020-10-27 08:41 | CCD ---
Author Author [facility] Organization [facility] Address Unknown Phone Unavailable Care Team Providers Care Sand Temperer Name Role Phone Abdiaziz Peralta MD Unavailable Unavailable Abdiaziz Peralta MD Unavailable Unavailable Abdiaziz Peralta MD Unavailable Unavailable Abdiaziz Peralta MD Unavailable Unavailable Abdiaziz Peralta MD Unavailable Unavailable Abdiaziz Peralta MD Unavailable Unavailable Abdiaziz Peralta MD Unavailable Unavailable Abdiaziz Peralta MD Unavailable Unavailable Abdiaziz Peralta MD Unavailable Unavailable Abdiaziz Peralta MD Unavailable Unavailable Abdiaziz Peralta MD Unavailable Unavailable Abdiaziz Peralta MD Unavailable Unavailable Abdiaziz Peralta MD Unavailable Unavailable Abdiaziz Peralta MD Unavailable Unavailable Abdiaziz Peralta MD Unavailable Unavailable Abdiaziz Peralta MD Unavailable Unavailable Abdiaziz Peralta MD Unavailable Unavailable Abdiaziz Peralta MD Unavailable Unavailable Abdiaziz Peralta MD Unavailable Unavailable Abdiaziz Peralta MD Unavailable Unavailable Abdiaziz Peralta MD Unavailable Unavailable Abdiaziz Peralta MD Unavailable Unavailable Abdiaziz Peralta MD Unavailable Unavailable Abdiaziz Peralta MD Unavailable Unavailable Abdiaziz Peralta MD Unavailable Unavailable Zach MAE MD Unavailable Unavailable Zach MAE MD Unavailable Unavailable Zach MAE MD Unavailable Unavailable Zach MAE MD Unavailable Unavailable OBEN, T ANTONIO MD Unavailable Unavailable OBEN, T ANTONIO MD Unavailable Unavailable OBEN, T ANTONIO MD Unavailable Unavailable OBEN, T ANTONIO MD Unavailable Unavailable OBEN, T ANTONIO MD Unavailable Unavailable OBEN, T ANTONIO MD Unavailable Unavailable OBEN, T ANTONIO MD Unavailable Unavailable OBEN, T ANTONIO MD Unavailable Unavailable OBEN, T ANTONIO MD Unavailable Unavailable OBEN, T ANTONIO MD Unavailable Unavailable OBEN, T ANTONIO MD Unavailable Unavailable OBEN, T ANTONIO MD Unavailable Unavailable OBEN, T ANTONIO MD Unavailable Unavailable OBEN, T ANTONIO MD Unavailable Unavailable OBEN, T ANTONIO MD Unavailable Unavailable OBEN, T ANTONIO MD Unavailable Unavailable OBEN, T ANTONIO MD Unavailable Unavailable OBEN, T ANTONIO MD Unavailable Unavailable OBEN, T ANTONIO MD Unavailable Unavailable OBEN, T ANTONIO MD Unavailable Unavailable OBEN, T ANTONIO MD Unavailable Unavailable OBEN, T ANTONIO MD Unavailable Unavailable OBEN, T ANTONIO MD Unavailable Unavailable OBEN, T ANTONIO MD Unavailable Unavailable OBEN, T ANTONIO MD Unavailable Unavailable OBEN, T ANTONIO MD Unavailable Unavailable OBEN, T ANTONIO MD Unavailable Unavailable OBEN, T ANTONIO MD Unavailable Unavailable OBEN, T ANTONIO MD Unavailable Unavailable OBEN, T ANTONIO MD Unavailable Unavailable OBEN, T ANTONIO MD Unavailable Unavailable OBEN, T ANTONIO MD Unavailable Unavailable OBEN, T ANTONIO MD Unavailable Unavailable OBEN, T ANTONIO MD Unavailable Unavailable OBEN, T ANTONIO MD Unavailable Unavailable OBEN, T ANTONIO MD Unavailable Unavailable OBEN, T ANTONIO MD Unavailable Unavailable OBEN, T ANTONIO MD Unavailable Unavailable OBEN, T ANTONIO MD Unavailable Unavailable OBEN, T ANTONIO MD Unavailable Unavailable OBEN, T ANTONIO MD Unavailable Unavailable OBEN, T ANTONIO MD Unavailable Unavailable OBEN, T ANTONIO MD Unavailable Unavailable OBEN, T ANTONIO MD Unavailable Unavailable OBEN, T ANTONIO MD Unavailable Unavailable OBEN, T ANTONIO MD Unavailable Unavailable OBEN, T ANTONIO MD Unavailable Unavailable OBEN, T ANTONIO MD Unavailable Unavailable OBEN, T ANTONIO MD Unavailable Unavailable OBEN, T ANTONIO MD Unavailable Unavailable OBEN, T ANTONIO MD Unavailable Unavailable OBEN, T ANTONIO MD Unavailable Unavailable OBEN, T ANTONIO MD Unavailable Unavailable OBEN, T ANTONIO MD Unavailable Unavailable OBEN, T ANTONIO MD Unavailable Unavailable OBEN, T ANTONIO MD Unavailable Unavailable OBEN, T ANTONIO MD Unavailable Unavailable OBEN, T ANTONIO MD Unavailable Unavailable OBEN, T ANTONIO MD Unavailable Unavailable OBEN, T ANTONIO MD Unavailable Unavailable OBEN, T ANTONIO MD Unavailable Unavailable OBEN, T ANTONIO MD Unavailable Unavailable OBEN, T ANTONIO MD Unavailable Unavailable OBEN, T ANTONIO MD Unavailable Unavailable OBEN, T ANTONIO MD Unavailable Unavailable OBEN, T ANTONIO MD Unavailable Unavailable OBEN, T ANTONIO MD Unavailable Unavailable OBEN, T ANTONIO MD Unavailable Unavailable OBEN, T ANTONIO MD Unavailable Unavailable OBEN, T ANTONIO MD Unavailable Unavailable OBEN, T ANTONIO MD Unavailable Unavailable OBEN, T ANTONIO MD Unavailable Unavailable OBEN, T ANTONIO MD Unavailable Unavailable OBEN, T ANTONIO MD Unavailable Unavailable OBEN, T ANTONIO MD Unavailable Unavailable OBEN, T ANTONIO MD Unavailable Unavailable OBEN, T ANTONIO MD Unavailable Unavailable OBEN, T ANTONIO MD Unavailable Unavailable OBEN, T ANTONIO MD Unavailable Unavailable OBEN, T ANTONIO MD Unavailable Unavailable OBEN, T ANTONIO MD Unavailable Unavailable OBEN, T ANTONIO MD Unavailable Unavailable OBEN, T ANTONIO MD Unavailable Unavailable OBEN, T ANTONIO MD Unavailable Unavailable OBEN, T ANTONIO MD Unavailable Unavailable OBEN, T ANTONIO MD Unavailable Unavailable OBEN, T ANTONIO MD Unavailable Unavailable OBEN, T ANTONIO MD Unavailable Unavailable OBEN, T ANTONIO MD Unavailable Unavailable OBEN, T ANTONIO MD Unavailable Unavailable OBEN, T ANTONIO MD Unavailable Unavailable OBEN, T ANTONIO MD Unavailable Unavailable OBEN, T ANTONIO MD Unavailable Unavailable OBEN, T ANTONIO MD Unavailable Unavailable OBEN, T ANTONIO MD Unavailable Unavailable OBEN, T ANTONIO MD Unavailable Unavailable OBEN, T ANTONIO MD Unavailable Unavailable OBEN, T ANTONIO MD Unavailable Unavailable OBEN, T ANTONIO MD Unavailable Unavailable OBEN, T ANTONIO MD Unavailable Unavailable OBEN, T ANTONIO MD Unavailable Unavailable OBEN, T ANTONIO MD Unavailable Unavailable BartoszeJudy bean MS, RPA-C Unavailable Unav ailable Bartoszewski, Judy Ding MS, RPA-C Unavailable Unav ailable Bartoszewsarchana, Judy Ding MS, RPA-C Unavailable Unav ailable Bartoszewsarchana, Judy Ding MS, RPA-C Unavailable Unav ailable Bartoszewski, Judy Toña MS, RPA-C Unavailable Unav ailable Bartoszewski, Judy Toña MS, RPA-C Unavailable Unav ailable Bartoszewski, Judy Toña MS, RPA-C Unavailable Unav ailable Bartoszewski, Judy Toña MS, RPA-C Unavailable Unav ailable Bartoszewski, Judy Toña MS, RPA-C Unavailable Unav ailable Bartoszewski, Judy Toña MS, RPA-C Unavailable Unav ailable Bartoszewski, Judy Toña MS, RPA-C Unavailable Unav ailable Bartoszewski, Judy Toña MS, RPA-C Unavailable Unav ailable Bartoszewski, Judy Toña MS, RPA-C Unavailable Unav ailable Bartoszewski, Judy Toña MS, RPA-C Unavailable Unav ailable Bartoszewski, Judy Toña MS, RPA-C Unavailable Unav ailable Bartoszewski, Judy Toña MS, RPA-C Unavailable Unav ailable Bartoszewski, Judy Toña MS, RPA-C Unavailable Unav ailable Bartoszewski, Judy Toña MS, RPA-C Unavailable Unav ailable Bartoszewski, Judy Toña MS, RPA-C Unavailable Unav ailable Bartoszewski, Judy Toña MS, RPA-C Unavailable Unav ailable Bartoszewski, Judy Toña MS, RPA-C Unavailable Unav ailable Bartoszewski, Judy Toña MS, RPA-C Unavailable Unav ailable Bartoszewski, Judy Toña MS, RPA-C Unavailable Unav ailable Bartoszewski, Judy Toña MS, RPA-C Unavailable Unav ailable Bartoszewski, Judy Toña MS, RPA-C Unavailable Unav ailable Bartoszewski, Judy Toña MS, RPA-C Unavailable Unav ailable Bartoszewski, Judy Toña MS, RPA-C Unavailable Unav ailable Bartoszewski, Judy Toña MS, RPA-C Unavailable Unav ailable Bartoszewski, Judy Toña MS, RPA-C Unavailable Unav ailable Bartoszewski, Judy Toña MS, RPA-C Unavailable Unav ailable Bartoszewski, Judy Toña MS, RPA-C Unavailable Unav ailable Bartoszewski, Judy Toña MS, RPA-C Unavailable Unav ailable Bartoszewski, Judy Toña MS, RPA-C Unavailable Unav ailable Bartoszewski, Judy Toña MS, RPA-C Unavailable Unav ailable Bartoszewski, Judy Toña MS, RPA-C Unavailable Unav ailable Bartoszewski, Judy Toña MS, RPA-C Unavailable Unav ailable Bartoszewski, Judy Toña MS, RPA-C Unavailable Unav ailable Bartoszewski, Judy Toña MS, RPA-C Unavailable Unav ailable Bartoszewski, Judy Toña MS, RPA-C Unavailable Unav ailable Bartoszewski, Judy Toña MS, RPA-C Unavailable Unav ailable Bartoszewski, Judy Toña MS, RPA-C Unavailable Unav ailable Bartoszewski, Judy Toña MS, RPA-C Unavailable Unav ailable Bartoszewski, Judy Toña MS, RPA-C Unavailable Unav ailable Bartoszewski, Judy Toña MS, RPA-C Unavailable Unav ailable Bartoszewski, Judy Toña MS, RPA-C Unavailable Unav ailable Bartoszewski, Judy Toña MS, RPA-C Unavailable Unav ailable Bartoszewski, Judy Toña MS, RPA-C Unavailable Unav ailable Bartoszewski, Judy Toña MS, RPA-C Unavailable Unav ailable Bartoszewski, Judy Toña MS, RPA-C Unavailable Unav ailable Bartoszewski, Judy Toña MS, RPA-C Unavailable Unav ailable Bartoszewski, Judy Toña MS, RPA-C Unavailable Unav ailable Bartoszewski, Judy Toña MS, RPA-C Unavailable Unav ailable Bartoszewski, Judy Toña MS, RPA-C Unavailable Unav ailable Bartoszewski, Judy Toña MS, RPA-C Unavailable Unav ailable BartJudy fried MS, RPA-C Unavailable Unav ailable LauritazewsJudy magaña MS, RPA-C Unavailable Unav ailable Lauritazewsarchana, Judy Ding MS, RPA-C Unavailable Unav ailable Bartoszewsarchana, Judy Ding MS, RPA-C Unavailable Unav ailable NO, PCP Unavailable Unavailable Re-disclosure Warning The records that you are about to access may contain information from federally-assisted alcohol or drug abuse programs. If such information is present, then the following federally mandated warning applies: This information has been disclosed to you from records protected by federal confidentiality rules (42 CFR part 2). The federal rules prohibit you from making any further disclosure of this information unless further disclosure is expressly permitted by the written consent of the person to whom it pertains or as otherwise permitted by 42 CFR part 2. A general authorization for the release of medical or other information is NOT sufficient for this purpose. The Federal rules restrict any use of the information to criminally investigate or prosecute any alcohol or drug abuse patient.The records that you are about to access may contain highly sensitive health information, the redisclosure of which is protected by Article 27-F of the [facility] Public Health law. If you continue you may have access to information: Regarding HIV / AIDS; Provided by facilities licensed or operated by the [facility] Office of Mental Health; or Provided by the [facility] Office for People With Developmental Disabilities. If such information is present, then the following [facility] mandated warning applies: This information has been disclosed to you from confidential records which are protected by state law. State law prohibits you from making any further disclosure of this information without the specific written consent of the person to whom it pertains, or as otherwise permitted by law. Any unauthorized further disclosure in violation of state law may result in a fine or fci sentence or both. A general authorization for the release of medical or other information is NOT sufficient authorization for further disc losure. Allergies and Adverse Reactions Type Description Substance Reaction Status Data Source(s ) No Known Drug Allergies No Known Drug Allergies [facility] No Known Environmental Allergies No Known Environmental Al lergies [facility] No Known Food Allergies No Known Food Allergies [facility] Family History Family Member Name Family Member Gender Family Member Status Date o f Status Description Data Source(s) Unknown Unknown Problem [facility]ENT ([facility]) Unknown Unknown Encounters Encounter Providers Location Date Indications Data Source(s ) Outpatient Attender: ANTONIO MAE MDConsultant: PCP NO 09/26/2020 10:31:00 AM EST - 09/26/2020 10:31:00 AM EST [facility] [place] [address] [facility] [address] 09/25/2020 12:00:00 AM EST eCW1 ([facility]) [place] [address] [facility] [address] 09/22/2020 12:00:00 AM EST eCW1 ([facility]) [place] [address] [facility] [address] 09/18/2020 12:00:00 AM EST eCW1 ([facility]) [place] [address] [facility] [place] [address] 08/25/2020 12:00:00 AM EST eCW1 ([facility]) [place] [address] [facility] [address] 08/24/2020 12:00:00 AM EST [facility] [place] [address] [facility] [address] 08/24/2020 12:00:00 AM EST [facility]CW1 [facility] Outpatient Attender: ANTONIO AME MDConsultant: PCP NO 08/16/2020 10:17:00 AM EST - 08/16/2020 10:17:00 AM EST [facility] Office Visit Attender: Toña Cevallos MS, RPA-C Family P hossein 08/16/2020 09:30:00 AM EST [facility] ([facility] [place] [address] [facility] [address] 08/10/2020 12:00:00 AM EST eCW1 ([facility]) Outpatient Attender: ANTONIO MAE MDConsultant: PCP NO 08/04/2020 10:15:00 AM EDT - 08/04/2020 02:36:00 PM EDT [facility] l Patient discharged. Outpatient Attender: ANTONIO MAE MDConsultant: PCP NO 08/02/2020 03:13:29 PM EDT - 08/03/2020 11:12:00 AM EDT [facility] l Patient discharged. Outpatient Attender: Toña Guzman i MS, RPA-CAttender: ANTONIO MAE MDConsultant: PCP NO 07/31/2020 10:44:00 AM EDT - 07/31/2020 11:44:00 AM EDT [facility] Patient discharged. [place] [address] [facility] [address] 07/19/2020 12:00:00 AM EDT eCW1 [facility] [place] [address] [facility] [address] 07/19/2020 12:00:00 AM EDT [facility] [place] [address] [facility] [address] 07/13/2020 12:00:00 AM EDT [facility]CW1 [facility] [place] [address] [facility] [address] 07/06/2020 12:00:00 AM EDT [facility] Outpatient Attender: ANTONIO MAE MDConsultant: PCP NO 06/16/2020 09:46:00 AM EDT - 06/16/2020 10:46:00 AM EDT [facility] l Outpatient Attender: ANTONIO MAE MD Family Practice 06/07/2020 03:00:0 0 PM EDT MEDENT ([facility]) Outpatient Attender: ANTONIO MAE MD 06/07/20 02:52:00 PM EDT - 06/07/2020 02:52:00 PM EDT [facility] Outpatient [address] [facility] [address] 03/14/2020 12:00:00 AM EDT eCW1 [facility] [place] [address] [facility] [address] 03/14/2020 12:00:00 AM EDT eCW1 ([facility]) [facility] [address] [place] [phone] 12/16/2019 12:00:00 AM EDT eCW1 ([facility]) [facility] [address] [place] [phone] 11/18/2019 12:00:00 AM EST eCW1 ([facility]) [facility] [address] [place] [phone] 11/11/2019 12:00:00 AM EST eCW1 ([facility]) [facility] [address] [place] [phone] 11/04/2019 12:00:00 AM EST eCW1 ([facility]) [facility] [address] [place] [phone] 11/04/2019 12:00:00 AM EST eCW1 ([facility]) [facility] [address] [place] [phone] 10/21/2019 12:00:00 AM EST eCW1 ([facility]) Outpatient Attender: Humberto Peralta MD Physical Therapy 06/2019 01:45:00 PM EST MEDENT ([facility]) Medications Medication Brand Name Start Date Product Form Dose Route Admi nistrative Instructions Pharmacy Instructions Status Indications Reaction Description Data Source(s) sildenafil 50 MG Oral Tablet [Viagra] Viagra 09/26/2020 12:00:00 AM EST ORAL active MEDENT ([facility]) Bisacodyl 5 MG Delayed Release Oral Tablet [Dulcolax] Dulcol ax 09/20/2020 12:00:00 AM EST ORAL active M EDENT ([facility], ) Suprep Bowel Prep Kit Suprep Bowel Prep Kit 09/20/2020 12:00:00 AM EST active [facility] ([facility] ) Methotrexate 2.5 MG Oral Tablet Methotrexate Sodium 2. 5 MG Methotrexate Sodium 2.5 MG 03/14/2020 12:00:00 AM EDT active Methotrexate Sodium 2.5 MG eCW1 ([facility]) Methotrexate 2.5 MG Oral Tablet Methotrexate Sodium 2. 5 MG Methotrexate Sodium 2.5 MG 03/14/2020 12:00:00 AM EDT suspended Methotrexate Sodium 2.5 MG eCW1 ([facility]) Methotrexate 2.5 MG Oral Tablet Methotrexate Sodium 2. 5 MG Methotrexate Sodium 2.5 MG 03/14/2020 12:00:00 AM EDT suspended Methotrexate Sodium 2.5 MG eCW1 ([facility]) Methotrexate 2.5 MG Oral Tablet Methotrexate Sodium 2. 5 MG Methotrexate Sodium 2.5 MG 03/14/2020 12:00:00 AM EDT suspended Methotrexate Sodium 2.5 MG eCW1 ([facility]) Methotrexate 2.5 MG Oral Tablet Methotrexate Sodium 2. 5 MG Methotrexate Sodium 2.5 MG 03/14/2020 12:00:00 AM EDT active Methotrexate Sodium 2.5 MG eCW1 ([facility]) Folic Acid 1 MG Oral Tablet Folic Acid 1 MG 03/14/2020 12:00:00 AM EDT 1.0 {tablet} active Folic Acid 1 MG eCW1 ([facility]) Folic Acid 1 MG Oral Tablet Folic Acid 1 MG 03/14/2020 12:00:00 AM EDT 1.0 {tablet} suspended Folic Acid 1 MG eCW1 ([facility]) Folic Acid 1 MG Oral Tablet Folic Acid 1 MG 03/14/2020 12:00:00 AM EDT 1.0 {tablet} suspended Folic Acid 1 MG eCW1 ([facility]) Folic Acid 1 MG Oral Tablet Folic Acid 1 MG 03/14/2020 12:00:00 AM EDT 1.0 {tablet} suspended Folic Acid 1 MG eCW1 ([facility]) Methotrexate 2.5 MG Oral Tablet Methotrexate Sodium 2. 5 MG Methotrexate Sodium 2.5 MG 03/14/2020 12:00:00 AM EDT suspended Methotrexate Sodium 2.5 MG eCW1 ([facility]) Methotrexate 2.5 MG Oral Tablet Methotrexate Sodium 2. 5 MG Methotrexate Sodium 2.5 MG 03/14/2020 12:00:00 AM EDT suspended Methotrexate Sodium 2.5 MG eCW1 ([facility]) Methotrexate 2.5 MG Oral Tablet Methotrexate Sodium 2. 5 MG Methotrexate Sodium 2.5 MG 03/14/2020 12:00:00 AM EDT suspended Methotrexate Sodium 2.5 MG eCW1 ([facility]) Folic Acid 1 MG Oral Tablet Folic Acid 1 MG 03/14/2020 12:00:00 AM EDT 1.0 {tablet} suspended Folic Acid 1 MG eCW1 ([facility]) Methotrexate 2.5 MG Oral Tablet Methotrexate Sodium 2. 5 MG Methotrexate Sodium 2.5 MG 03/14/2020 12:00:00 AM EDT active Methotrexate Sodium 2.5 MG eCW1 ([facility]) Methotrexate 2.5 MG Oral Tablet Methotrexate Sodium 2. 5 MG Methotrexate Sodium 2.5 MG 03/14/2020 12:00:00 AM EDT suspended Methotrexate Sodium 2.5 MG eCW1 ([facility]) Folic Acid 1 MG Oral Tablet Folic Acid 1 MG 03/14/2020 12:00:00 AM EDT 1.0 {tablet} suspended Folic Acid 1 MG eCW1 ([facility]) Folic Acid 1 MG Oral Tablet Folic Acid 1 MG 03/14/2020 12:00:00 AM EDT 1.0 {tablet} suspended Folic Acid 1 MG eCW1 ([facility]) Methotrexate 2.5 MG Oral Tablet Methotrexate Sodium 2. 5 MG Methotrexate Sodium 2.5 MG 03/14/2020 12:00:00 AM EDT active Methotrexate Sodium 2.5 MG eCW1 ([facility]) Folic Acid 1 MG Oral Tablet Folic Acid 1 MG 03/14/2020 12:00:00 AM EDT 1.0 {tablet} active Folic Acid 1 MG eCW1 ([facility]) Methotrexate 2.5 MG Oral Tablet Methotrexate Sodium 2. 5 MG Methotrexate Sodium 2.5 MG 03/14/2020 12:00:00 AM EDT suspended Methotrexate Sodium 2.5 MG eCW1 ([facility]) Methotrexate 2.5 MG Oral Tablet Methotrexate Sodium 2. 5 MG Methotrexate Sodium 2.5 MG 03/14/2020 12:00:00 AM EDT suspended Methotrexate Sodium 2.5 MG eCW1 ([facility]) Folic Acid 1 MG Oral Tablet Folic Acid 1 MG 03/14/2020 12:00:00 AM EDT 1.0 {tablet} active Folic Acid 1 MG eCW1 ([facility]) Folic Acid 1 MG Oral Tablet Folic Acid 1 MG 03/14/2020 12:00:00 AM EDT 1.0 {tablet} suspended Folic Acid 1 MG eCW1 ([facility]) Folic Acid 1 MG Oral Tablet Folic Acid 1 MG 03/14/2020 12:00:00 AM EDT 1.0 {tablet} suspended Folic Acid 1 MG eCW1 ([facility]) Folic Acid 1 MG Oral Tablet Folic Acid 1 MG 03/14/2020 12:00:00 AM EDT 1.0 {tablet} active Folic Acid 1 MG eCW1 ([facility]) Folic Acid 1 MG Oral Tablet Folic Acid 1 MG 03/14/2020 12:00:00 AM EDT 1.0 {tablet} suspended Folic Acid 1 MG eCW1 ([facility]) Sulfasalazine 500 MG Oral Tablet Sulfasalazine 500 MG 2019 12:00:00 AM EST suspended 1 tablet eCW1 ([facility]) Hydroxychloroquine Sulfate 200 MG Oral Tablet Hydroxychloroq uine Sulfate 200 MG 11/12/2019 12:00:00 AM EST 2.0 {tablets} suspend ed Hydroxychloroquine Sulfate 200 MG eCW1 ([facility]) Sulfasalazine 500 MG Oral Tablet Sulfasalazine 500 MG 2019 12:00:00 AM EST 1.0 {tablet} suspended Sulfasal azine 500 MG eCW1 ([facility]) Sulfasalazine 500 MG Oral Tablet Sulfasalazine 500 MG 2019 12:00:00 AM EST 1.0 {tablet} suspended Sulfasal azine 500 MG eCW1 ([facility]) Sulfasalazine 500 MG Oral Tablet Sulfasalazine 500 MG 2019 12:00:00 AM EST 1.0 {tablet} suspended Sulfasal azine 500 MG eCW1 ([facility]) Hydroxychloroquine Sulfate 200 MG Oral Tablet Hydroxychloroq uine Sulfate 200 MG 11/12/2019 12:00:00 AM EST 2.0 {tablets} suspend ed Hydroxychloroquine Sulfate 200 MG eCW1 ([facility]) Sulfasalazine 500 MG Oral Tablet Sulfasalazine 500 MG 2019 12:00:00 AM EST 1.0 {tablet} suspended Sulfasal azine 500 MG eCW1 ([facility]) Hydroxychloroquine Sulfate 200 MG Oral Tablet Hydroxychloroq uine Sulfate 200 MG 11/12/2019 12:00:00 AM EST 2.0 {tablets} suspend ed Hydroxychloroquine Sulfate 200 MG eCW1 ([facility]) Hydroxychloroquine Sulfate 200 MG Oral Tablet Hydroxychloroq uine Sulfate 200 MG 11/12/2019 12:00:00 AM EST 2.0 {tablets} suspend ed Hydroxychloroquine Sulfate 200 MG eCW1 ([facility]) Sulfasalazine 500 MG Oral Tablet Sulfasalazine 500 MG 2019 12:00:00 AM EST 1.0 {tablet} suspended Sulfasal azine 500 MG eCW1 ([facility]) Hydroxychloroquine Sulfate 200 MG Oral Tablet Hydroxychloroq uine Sulfate 200 MG 11/12/2019 12:00:00 AM EST active 2 tablets eCW1 ([facility]) Hydroxychloroquine Sulfate 200 MG Oral Tablet Hydroxychloroq uine Sulfate 200 MG 11/12/2019 12:00:00 AM EST 2.0 {tablets} suspend ed Hydroxychloroquine Sulfate 200 MG eCW1 ([facility]) Sulfasalazine 500 MG Oral Tablet Sulfasalazine 500 MG 2019 12:00:00 AM EST 1.0 {tablet} suspended Sulfasal azine 500 MG eCW1 ([facility]) Sulfasalazine 500 MG Oral Tablet Sulfasalazine 500 MG 2019 12:00:00 AM EST active 1 tablet eCW1 ([facility]) Sulfasalazine 500 MG Oral Tablet Sulfasalazine 500 MG 2019 12:00:00 AM EST 1.0 {tablet} suspended Sulfasal azine 500 MG eCW1 ([facility]) Sulfasalazine 500 MG Oral Tablet Sulfasalazine 500 MG 2019 12:00:00 AM EST 1.0 {tablet} suspended Sulfasal azine 500 MG eCW1 (Formerly [facility]) Hydroxychloroquine Sulfate 200 MG Oral Tablet Hydroxychloroq uine Sulfate 200 MG 11/12/2019 12:00:00 AM EST 2.0 {tablets} suspend ed Hydroxychloroquine Sulfate 200 MG eCW1 (Formerly [facility]) Hydroxychloroquine Sulfate 200 MG Oral Tablet Hydroxychloroq uine Sulfate 200 MG 11/12/2019 12:00:00 AM EST 2.0 {tablets} suspend ed Hydroxychloroquine Sulfate 200 MG eCW1 (Formerly [facility]) Hydroxychloroquine Sulfate 200 MG Oral Tablet Hydroxychloroq uine Sulfate 200 MG 11/12/2019 12:00:00 AM EST 2.0 {tablets} suspend ed Hydroxychloroquine Sulfate 200 MG eCW1 (Formerly [facility]) Hydroxychloroquine Sulfate 200 MG Oral Tablet Hydroxychloroq uine Sulfate 200 MG 11/12/2019 12:00:00 AM EST 2.0 {tablets} suspend ed Hydroxychloroquine Sulfate 200 MG eCW1 (Formerly [facility]) Sulfasalazine 500 MG Oral Tablet Sulfasalazine 500 MG 2019 12:00:00 AM EST 1.0 {tablet} suspended Sulfasal azine 500 MG eCW1 ([facility]ly [facility]) Sulfasalazine 500 MG Oral Tablet Sulfasalazine 500 MG 2019 12:00:00 AM EST 1.0 {tablet} suspended Sulfasal azine 500 MG eCW1 ([facility]ly [facility]) Sulfasalazine 500 MG Oral Tablet Sulfasalazine 500 MG 2019 12:00:00 AM EST 1.0 {tablet} suspended Sulfasal azine 500 MG eCW1 ([facility]ly [facility]) Sulfasalazine 500 MG Oral Tablet Sulfasalazine 500 MG 2019 12:00:00 AM EST 1.0 {tablet} suspended Sulfasal azine 500 MG eCW1 ([facility]ly [facility]) Sulfasalazine 500 MG Oral Tablet Sulfasalazine 500 MG 2019 12:00:00 AM EST 1.0 {tablet} suspended Sulfasal azine 500 MG eCW1 ([facility]) Hydroxychloroquine Sulfate 200 MG Oral Tablet Hydroxychloroq uine Sulfate 200 MG 11/12/2019 12:00:00 AM EST suspended 2 tablets eCW1 ([facility]ly [facility]) Hydroxychloroquine Sulfate 200 MG Oral Tablet Hydroxychloroq uine Sulfate 200 MG 11/12/2019 12:00:00 AM EST 2.0 {tablets} suspend ed Hydroxychloroquine Sulfate 200 MG eCW1 ([facility]) Hydroxychloroquine Sulfate 200 MG Oral Tablet Hydroxychloroq uine Sulfate 200 MG 11/12/2019 12:00:00 AM EST 2.0 {tablets} suspend ed Hydroxychloroquine Sulfate 200 MG eCW1 ([facility]ly [facility]) Hydroxychloroquine Sulfate 200 MG Oral Tablet Hydroxychloroq uine Sulfate 200 MG 11/12/2019 12:00:00 AM EST 2.0 {tablets} suspend ed Hydroxychloroquine Sulfate 200 MG eCW1 ([facility]) Hydroxychloroquine Sulfate 200 MG Oral Tablet Hydroxychloroq uine Sulfate 200 MG 11/12/2019 12:00:00 AM EST 2.0 {tablets} suspend ed Hydroxychloroquine Sulfate 200 MG eCW1 (Formerly [facility]) Enbrel Mini 50 MG/ML Enbrel Mini 50 MG/ML 11/04/2019 12:00:00 AM EST 1.0 {ml} active Enbrel Mini 50 MG/ML eCW1 (Formerly [facility]) Enbrel Mini 50 MG/ML Enbrel Mini 50 MG/ML 11/04/2019 12:00:00 AM EST 1.0 {ml} active Enbrel Mini 50 MG/ML eCW1 ([facility]ly [facility]) Enbrel Mini 50 MG/ML Enbrel Mini 50 MG/ML 11/04/2019 12:00:00 AM EST 1.0 {ml} active Enbrel Mini 50 MG/ML eCW1 ([facility]) Enbrel Mini 50 MG/ML Enbrel Mini 50 MG/ML 11/04/2019 12:00:00 AM EST 1.0 {ml} active Enbrel Mini 50 MG/ML eCW1 ([facility]) Enbrel Mini 50 MG/ML Enbrel Mini 50 MG/ML 11/04/2019 12:00:00 AM EST 1.0 {ml} active Enbrel Mini 50 MG/ML eCW1 ([facility]) Enbrel Mini 50 MG/ML Enbrel Mini 50 MG/ML 11/04/2019 12:00:00 AM EST 1.0 {ml} active Enbrel Mini 50 MG/ML eCW1 ([facility]) Enbrel Mini 50 MG/ML Enbrel Mini 50 MG/ML 11/04/2019 12:00:00 AM EST 1.0 {ml} active Enbrel Mini 50 MG/ML eCW1 ([facility]) Enbrel Mini 50 MG/ML Enbrel Mini 50 MG/ML 11/04/2019 12:00:00 AM EST active 1 ml eCW1 ([facility]) Enbrel Mini 50 MG/ML Enbrel Mini 50 MG/ML 11/04/2019 12:00:00 AM EST 1.0 {ml} active Enbrel Mini 50 MG/ML eCW1 ([facility]) Enbrel Mini 50 MG/ML Enbrel Mini 50 MG/ML 11/04/2019 12:00:00 AM EST 1.0 {ml} active Enbrel Mini 50 MG/ML eCW1 ([facility]) Enbrel Mini 50 MG/ML Enbrel Mini 50 MG/ML 11/04/2019 12:00:00 AM EST 1.0 {ml} active Enbrel Mini 50 MG/ML eCW1 ([facility]) Enbrel Mini 50 MG/ML Enbrel Mini 50 MG/ML 11/04/2019 12:00:00 AM EST active 1 ml eCW1 ([facility]ly [facility]) Enbrel Mini 50 MG/ML Enbrel Mini 50 MG/ML 11/04/2019 12:00:00 AM EST 1.0 {ml} active Enbrel Mini 50 MG/ML eCW1 ([facility]ly [facility]) Enbrel Mini 50 MG/ML Enbrel Mini 50 MG/ML 11/04/2019 12:00:00 AM EST 1.0 {ml} active Enbrel Mini 50 MG/ML eCW1 ([facility]) Enbrel Mini 50 MG/ML Enbrel Mini 50 MG/ML 11/04/2019 12:00:00 AM EST 1.0 {ml} active Enbrel Mini 50 MG/ML eCW1 ([facility]ly [facility]) Medrol 4 MG UNK 10/21/2019 12:00:00 AM EST active 1-2 tablet eCW1 (Formerly [facility]) Methylprednisolone 4 MG Oral Tablet [Medrol] Medrol 4 MG Med rol 4 MG 10/21/2019 12:00:00 AM EST active Medrol 4 MG eCW1 ([facility]ly [facility]) Methylprednisolone 4 MG Oral Tablet [Medrol] Medrol 4 MG Med rol 4 MG 10/21/2019 12:00:00 AM EST active Medrol 4 MG eCW1 ([facility]ly [facility]) Methylprednisolone 4 MG Oral Tablet [Medrol] Medrol 4 MG Med rol 4 MG 10/21/2019 12:00:00 AM EST active 1-2 tabl et eCW1 ([facility]ly [facility]) Methylprednisolone 4 MG Oral Tablet [Medrol] Medrol 4 MG Med rol 4 MG 10/21/2019 12:00:00 AM EST active Medrol 4 MG eCW1 ([facility]ly [facility]) Methylprednisolone 4 MG Oral Tablet [Medrol] Medrol 4 MG Med rol 4 MG 10/21/2019 12:00:00 AM EST active 1-2 tabl et eCW1 ([facility]ly [facility]) Methylprednisolone 4 MG Oral Tablet [Medrol] Medrol 4 MG Med rol 4 MG 10/21/2019 12:00:00 AM EST active Medrol 4 MG eCW1 ([facility]ly [facility]) Methylprednisolone 4 MG Oral Tablet [Medrol] Medrol 4 MG Med rol 4 MG 10/21/2019 12:00:00 AM EST active Medrol 4 MG eCW1 ([facility]ly [facility]) Insurance Providers Payer name Policy type / Coverage type Policy ID Covered green party ID Covered green party's relationship to galo Policy Galo Plan Information BCBS BARBY HMO [id number] SP [id number] BCBS BARBY HMO [id number] SP [id number] EXCELLUS BC-BS PPO [id number] SP [id number] [employer] [place] BS [id number] 18 [id number] BLUE CROSS BLUE SHIELD -O/P BS [id number] 18 [id number] EXCELLUS BCBS B [id number] S [id number] BLUE CROSS BLUE SHIELD -PHYSICIAN BS [id number] 18 [id number] EXCELLUS CNY [facility] BS [id number] 18 [id number] BCBS/Excellus Commercial [id number] Family Dependent [id number] BCBS/[employer]cellus Commercial [id number] Family Dependent [id number] BCBS/Excellus Medigap Part B [id number] Family Dependen t [id number] [employer] Compensation [id number] Self [id number] BCBS/Excellus Medigap Part B [id number] Family Dependen t [id number] [place] Compensation [id number] Self [id number] BCBS/Excellus Medigap Part B [id number] Family Dependen t [id number] [employer] Compensation [id number] Self [id number] BCBS/[employer] Commercial [id number] Family Dependent [id number] Workers Compensation Workers Compensation Self BCBS/Excellus Commercial Family Dependent [employer] P UNAVAILABLE S UNAVAILABLE WORKERS COMP W/OI NFO P NEED INFORMATION S NEED INFORMATION Problems, Conditions, and Diagnoses Code Display Name Description Problem Type Effective Dates Data Source(s) F17.200 988437304 Tobacco use disorder Problem 08/24/2020 12:0 0:00 AM EST eCW1 ([facility]) I73.00 [id number] Raynaud's disease without gangrene Proble m 08/24/2020 12:00:00 AM EST eCW1 ([facility]ly [facility]) [id number] Cyst of epididymis Cyst of epididymis Problem 08/2020 12:00:00 AM EST [facility] ([facility]) [id number] Hydrocele Hydrocele Problem 08/16/2020 12:00:00 AM ES T [facility] ([facility]) [id number] 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 Prob dorothea 08/16/2020 12:00:00 AM EST [facility] ([facility]) [id number] Rheumatoid arthritis Rheumatoid arthritis Problem 06/07/2020 12:00:00 AM EDT [facility] ([facility]) M06.09 [id number] Rheumatoid arthritis of multiple sites with 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 factor Problem 11/04/2019 12:00:00 AM EST eCW1 ([facility]) M06.09 [id number] Rheumatoid arthritis of multiple sites with 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 factor Problem 11/04/2019 12:00:00 AM EST eCW1 ([facility]) M06.4 [id number] Inflammatory polyarthritis Problem 0 12:00:00 AM EST eCW1 ([facility]) M06.4 [id number] Inflammatory polyarthritis Problem 0 12:00:00 AM EST eCW1 ([facility]ly [facility]) [id number] Encounter for other specified surgical a ftercare Encounter for other specified surgical aftercare Diagnosis 08/16/2020 10:17:00 AM EST [facility] N432 Other hydrocele Other hydrocele Diagnosis 08/04/2020 10:1 5:00 AM EDT [facility] 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 Diagnosis 08/04/2020 10:15:00 AM EDT [facility] N503 Cyst of epididymis Cyst of epididymis Diagnosis 0 10:15:00 AM T [facility] [id number] Encounter for other preprocedural examin ation Encounter for other preprocedural examination Diagnosis 08/03/2020 10:20:00 AM EDT [facility] Z1159 Encounter for screening for other viral diseases Encounter for screening for other viral diseases Diagnosis 08/03/2020 10:20:00 AM EDT [facility] N509 Disorder of male genital organs, unspeci fied Disorder of male genital organs, unspecified Diagnosis 07/31/2020 10:44:00 AM T [facility] [id number] Abnormal radiologic findings on diagnost ic imaging of left testicle Abnormal radiologic findings on diagnostic imaging of left testicle Diagnosis 06/16/2020 09:46:00 AM T [facility] Results ID Date Data Source [id number] 10/22/2020 09:00:00 AM EST [facility] Name Value Range Interpretation Code Description Data Radha rce(s) Supporting Document(s) SARS coronavirus [address] [facility] This lab was ordered by [facility] and reported by [facility]. ID Date Data Source [id number] 09/26/2020 08:00:00 AM EST [facility] ([facility]) Name Value Range Interpretation Code Description Data Radha rce(s) Supporting Document(s) Color of Urine Laboratory test result [facility] ([facility]) Spec [place] 1.020 [facility] ([facility]) Appearance of Urine Laboratory test result [facility] ([facility]) Nitrate [Presence] in Urine Laboratory test result [facility] ([facility]) pH of Urine by Test strip 5 MEDE NT ([facility]) Leukocytes Laboratory test result [facility] ([facility]) Ketones [Presence] in Urine by Test strip Laboratory test result [facility] ([facility]) Inhouse Glucose Laboratory test result [facility] ([facility]) Protein [Presence] in Urine by Test strip Laboratory test result [facility] ([facility]) Bilirubin.total [Presence] in Urine by Test strip Laboratory test res ult [facility] ([facility]) Urobilinogen Laboratory test result [facility] ([facility]) Blood type and Indirect antibody screen panel - Blood Laboratory test result [facility] ([facility]) ID Date Data Source [id number] 08/16/2020 08:00:00 AM EST [facility] ([facility]) Name Value Range Interpretation Code Description Data Radha rce(s) Supporting Document(s) Color of Urine Laboratory test result [facility] ([facility]) Spec [place] 1.005 [facility] ([facility]) Appearance of Urine Laboratory test result [facility] ([facility]) pH of Urine by Test strip 5 MEDE NT ([facility]) Protein [Presence] in Urine by Test strip Laboratory test result [facility] ([facility]) Leukocytes Laboratory test result [facility] ([facility]) Nitrate [Presence] in Urine Laboratory test result [facility] ([facility]) Inhouse Glucose Laboratory test result [facility] ([facility]) Urobilinogen Laboratory test result [facility] ([facility]) Ketones [Presence] in Urine by Test strip Laboratory test result [facility] ([facility]) Blood type and Indirect antibody screen panel - Blood Laboratory test result [facility] ([facility]) Bilirubin.total [Presence] in Urine by Test strip Laboratory test res ult [facility] ([facility]) ID Date Data Source [id number] 08/07/2020 08:01:00 [place] [address] OPERATIVE SUMMARYNAME: FITZ URIARTE DATE OF : 1965ATTENDING PHYS: ANTONIO MAE MD DATE: 08/04/20 MR#: [id number] [id number] PROCEDURE: 08/04/2020PREOPERATIVE DIAGNOSIS: Bilateral epididymal cysts.POST-OPERATIVE DIAGNOSIS:1. Bilateral hydroceles.2. Right epididymal cyst.3. Left lipoma of the cord.PROCEDURE PERFORMED:1. Right hydrocelectomy.2. Right epididymal cyst removal.3. Partial right epididymectomy.4. Left hydrocelectomy.5. Removal of left lipoma of the cord.ATTENDING SURGEON: Dr. Antonio Mae.PHYSICIAN ORDER ENTRY: [facility]OSSE[facility].ANESTHESIA: General with LMA.ANESTHESIOLOGIST: Dr. Shilpi Bradshaw.ESTIMATED BLOOD LOSS: Minimal.COMPLICATIONS: None.DRAINS: None.DISPOSITION: To the recovery room.CONDITION: Stable.INTRAOPERTATIVE FINDINGS:As stated above.INDICATIONS FOR PROCEDURE: [address] [place] [address] OPERATIVE SUMMARYNAME: FITZ URIARTE DATE OF : 1965ATTENDING PHYS: ANTONIO MAE MD DATE: 08/04/20 MR#: [id number]. Kalani Mcgrath is a 55-year-old gentleman who had previously been seen and evaluatedwith bilateral scrotal pain and swelling. He had, after counseling, opted for a bilateral scrotalexploration with hydrocelectomy and epididymis cyst removal.DETAILS OF PROCEDURE:After a detailed informed consent was obtained from the patient, he was wheeled into the operatingroom and installed on the operating table in the supine position. Proper monitoring devices wereplaced on the patient, and general anesthesia with LMA was administered. The penoscrotal areawas then cleaned, prepped, and draped in the u sual sterile fashion. After the proper time-outprocedures were carried out, we then proceeded with a 4 cm transverse incision of the right alfred-scrotum. This was carried down through the subcutaneous tissues into the dartos layer, which wasopened, and the testicle and its surrounding tunica vaginalis were delivered. The tunica vaginaliswas then opened, and approximately 50 cc of straw-colored fluid was aspirated. The hydrocele sacwas then everted, such as to prevent re- accumulation of the hydrocele fluid. Attention was thenturned to the head of the epididymis, where an inflammatory mass, most likely from chronicepididymitis, was removed. The head of the epididymis was transected, was removed, and thestump amputated. Measures were taken to ensure that adequate hemostasis was ensured. Thereafter,the testicle and spermatic cord were reinserted into the scrotum, and the scrotum was closed in twolayers, first using 3-0 Vicryl for the dartos layer, followed by 3-0 chromic catgut for the skin. Next,attention was turned to the left alfred-scrotum, where once again a 5 cm transverse incision wasmade on the scrotum, carried down through the subcutaneous tissues and the dartos layer, whichwas opened. The scrotal contents were then delivered without difficulties. A large hydrocele couldbe immediately identified, and the tunica vaginalis was opened. There was evidence of chronicinflammation of the testicle with the attachments of the tunica to the testicle and surroundingtissues. The excess portion of the tunica vaginalis was transected, and the edges of the sac evertedaround the testicle to prevent recurrence. A large fatty area of the spermatic cord continued fromthe mid cord to underneath the epididymis, raising it from its attachment onto the testicle. Thislooked like what seemed to be a lipoma of the spermatic cord on the left side. This was thendissected off of the surrounding structures to the mid cord, where it was doubly ligated andtransected. Hemostasis was ensured, after which his testicle was re-inserted into the scrotum, andonce again closed in two layers with 3-0 Vicryl for the dartos layer and 3-0 chromic catgut in fourinterrupted horizontal mattress sutures for the skin. At this point, with the operation nowcompleted, the anesthesia was reversed. The patient was transferred onto a stretcher, on which hewas transferred to the recovery room in stable condition. The operation was well-tolerated, andthere were no complications. [address] [place] [address] OPERATIVE SUMMARYNAME: FITZ URIARTE DATE OF : 1965ATTENDING PHYS: ANTONIO MAE MD DATE: 08/04/20 MR#: [id number]: ANTONIO MAE MD 08/04/20 14:50DT: SSR 08/07/20 07:16DS: ANTONIO MAE MD 08/11/20 12:35 3 Name Value Range Interpretation Code Description Data Radha rce(s) Supporting Document(s) ID Date Data Source [id number] 07/31/2020 09:27:00 AM EDT [facility] Name Value Range Interpretation Code Description Data Radha rce(s) Supporting Document(s) SARS coronavirus 2 RNA [facility] This lab was ordered by [facility] Jaden arriaza and reported by [facility]. ID Date Data Source [id number] 08/01/2020 09:08:00 AM EDT [facility] Name Value Range Interpretation Code Description Data Radha rce(s) Supporting Document(s) SARS-CoV-2, PHYLICIA Not Detected Not Detected [facility] This nucleic acid amplification test was developed and its performancecharacteristics determined by [facility]. Nucleic acidamplification tests include PCR and TMA. This test has not been FDAcleared or approved. This test has been authorized by FDA under anEmergency Use Authorization (EUA). This test is only authorized forthe duration of time the declaration that circumstances existjustifying the authorization of the emergency use of in vitrodiagnostic tests for detection of SARS-CoV-2 virus and/or diagnosisof COVID-19 infection under section 564(b)(1) of the Act, 21 U.S.C.360bbb-3(b) (1), unless the authorization is terminated or revokedsooner.When diagnostic testing is negative, the possibility of a falsenegative result should be considered in the context of a patient'srecent exposures and the presence of clinical signs and symptomsconsistent with COVID- 19. An individual without symptoms of COVID-19and who is not shedding SARS-CoV-2 virus would expect to have anegative (not detected) result in this assay. ID Date Data Source [id number] 06/19/2020 08:52:00 AM EDT [facility] [address] [place] [address] PHONE: [phone] FAX: [phone] Name .................. : FITZ URIARTE Acct Number.................. : [id number] ROOM. ................. : Number ................... : [id number] Stay type ............. : O/P Discharge Date......... ... : 06/16/20 Admit Date ......... : 06/16/20 Admit Phys .................... : OBENFELIX Date of ....... : 1965 Family Phys ................... : NO PCP Phone .................. : [phone] Age ................................ : 55 Film# .................. .:[id number] Sex ................................. : M Unsigned transcriptions are preliminary reports and do not represent a medical or legal document US SCROTAL [id number] COMPLETE:06/16/20 11:33 BAW [id number] (REASON FOR TESTING: R SCROTAL ULTRASOUND WITH DUPLEX AND COLOR FLOW DOPPLER ANALYSIS, 06/16/20: INDICATION: Bilateral lumps within the scrotum. FINDINGS: Right testicle measures 2.8 x 2.9 x 3.4 cm. Left testicle measures 3.4 x 4.4 x 2.8 cm. There is a 5 mm x 9 mm epididymal head cyst identified. There is normal blood flow to the right and left testicles with no intratesticular lesions noted. There is a septated epidi dymal cyst identified on the left side measuring 1 cm x 6 mm. Cephalic to the left testicle there is a cystic region identified measuring 3.5 cm x 3.6 cm with some septations within it. Could be a sepatated hydrocele or possible epididymal cyst as well. IMPRESSION: No intratesticular lesions. Large cystic region cephalic to the left testicle, likely a septated hydrocele or less likely an epididymal cyst. Smaller epididymal cyst identified in the right and left epididymal heads bilaterally. Electronically Reviewed and Signed By ROBBIN MEZA MD , 06/19/20 08:52, [facility] Transcribe Initials: SSR, Transcribe Date: 06/16/20 14:26, Dictation Date: Copy for: [facility] via fax Copy for: [address] [place] [address] REC Page 1 of 1 Name Value Range Interpretation Code Description Data Radha rce(s) Supporting Document(s) ID Date Data Source [id number] 06/07/2020 03:49:00 PM EDT [facility] ([facility]) Name Value Range Interpretation Code Description Data Radha rce(s) Supporting Document(s) US Scrotal Laboratory test result [facility] ([facility]) ID Date Data Source [id number] 06/07/2020 08:51:00 AM EDT [facility] ([facility]) Name Value Range Interpretation Code Description Data Radha rce(s) Supporting Document(s) Color of Urine Laboratory test result [facility] ([facility]) Appearance of Urine Laboratory test result [facility] ([facility]) Spec [place] 1.010 [facility] ([facility]) pH of Urine by Test strip 7 MEDE NT ([facility]) Leukocytes Laboratory test result [facility] ([facility]) Nitrate [Presence] in Urine Laboratory test result [facility] ([facility]) Protein [Presence] in Urine by Test strip Laboratory test result [facility] ([facility]) Inhouse Glucose Laboratory test result [facility] ([facility]) Urobilinogen Laboratory test result [facility] ([facility]) Ketones [Presence] in Urine by Test strip Laboratory test result [facility] ([facility]) Bilirubin.total [Presence] in Urine by Test strip Laboratory test res ult [facility] ([facility]) Blood type and Indirect antibody screen panel - Blood Laboratory test result [facility] ([facility]) ID Date Data Source LYME DISEASE SCRN WITH CONFIRM 10/21/2019 12:00:00 AM EST eC W1 ([facility]) Name Value Range Interpretation Code Description Data Radha rce(s) Supporting Document(s) <0.80 0.00-0.79 Lyme Disease IgM Ab Quant itati eCW1 ([facility]) <0.91 0.00-0.90 Lyme Disease IgG/IgM Anti niranjan eCW1 ([facility]) ID Date Data Source URIC ACID 10/21/2019 12:00:00 AM EST eCW1 ([facility]) Name Value Range Interpretation Code Description Data Radha rce(s) Supporting Document(s) 5.6 3.5-7.2 URIC ACID eCW1 ([facility]) ID Date Data Source RHEUMATOID FACTOR QUANT 10/21/2019 12:00:00 AM EST eCW1 ([facility] Name Value Range Interpretation Code Description Data Radha rce(s) Supporting Document(s) < 10.0 <15.0 RHEUMATOID FACTOR QUANT eCW1 ( [facility]) ID Date Data Source [id number] SEDIMENTATION RATE 10/21/2019 12:00:00 AM EST eC W1 ([facility]) Name Value Range Interpretation Code Description Data Radha rce(s) Supporting Document(s) 1 0-20 ERYTHROCYTE SEDIMENTATION RATE eCW1 (Formerly [facility]) ID Date Data Source C REACTIVE PROTEIN QUANTITATIV (At [facility]) 10/21/2019 12:00 :00 AM EST eCW1 (Formerly [facility]) Name Value Range Interpretation Code Description Data Radha rce(s) Supporting Document(s) < 0.30 0.00-0.30 C REACTIVE PROTEIN QUANTI TATIV eCW1 (Formerly [facility]) ID Date Data Source HEPATITIS C ANTIBODY INDEX 10/21/2019 12:00:00 AM EST eCW1 ( Formerly [facility]) Name Value Range Interpretation Code Description Data Radha rce(s) Supporting Document(s) < 0.0 <0.8 HEPATITIS C VIRUS KATIANA IND EX eCW1 (Formerly [facility]) ID Date Data Source HEPATITIS B SURFACE ANTIGEN 10/21/2019 12:00:00 AM EST eCW1 (Formerly [facility]) Name Value Range Interpretation Code Description Data Radha rce(s) Supporting Document(s) NEGATIVE NEGATIVE HEPATITIS B SURFACE ANTIG EN eCW1 (Formerly [facility]) ID Date Data Source Comprehensive Metabolic Profile (CMP) 10/21/2019 12:00:00 AM EST eCW1 (Formerly [facility]) Name Value Range Interpretation Code Description Data Radha rce(s) Supporting Document(s) 7 7-18 BLOOD UREA NITROGEN eCW1 ([facility]) 103 70-100 GLUCOSE, FASTING eCW1 ([facility]) 4.2 3.5-5.1 POTASSIUM SERUM eCW1 ([facility]) 0.85 0.70-1.30 CREATININE FOR GFR eCW1 ([facility]) > 60.0 >56 GLOMERULAR FILTRATION RATE eCW 1 (Formerly [facility]) 136 136-145 SODIUM LEVEL eCW1 ([facility]) 104 98-107 CHLORIDE LEVEL eCW1 (Formerly [facility]) 8.8 8.5-10.1 CALCIUM LEVEL eCW1 (Formerly [facility]) 18 7-37 AST/SGOT eCW1 ([facility]) 26 21-32 CARBON DIOXIDE LEVEL eCW1 ([facility] hospital) 35 12-78 ALT/SGPT eCW1 ([facility]) 7.5 6.4-8.2 TOTAL PROTEIN eCW1 ([facility]ly [facility]) 93 45-117 ALKALINE PHOSPHATASE eCW1 (Critical access hospital) 0.8 0.2-1.0 BILIRUBIN,TOTAL eCW1 ([facility]) 1.21 1.00-1.93 ALBUMIN/GLOBULIN RATIO eCW1 ([facility]) 4.1 3.2-5.2 ALBUMIN eCW1 ([facility]) ID Date Data Source CBC with Differential 10/21/2019 12:00:00 AM EST eCW1 ([facility]) Name Value Range Interpretation Code Description Data Radha rce(s) Supporting Document(s) 11.2 4.0-10.0 WHITE BLOOD COUNT eCW1 ([facility]) 4.95 4.30-6.10 RED BLOOD COUNT eCW1 ([facility]) 96.2 80.0-96.0 MEAN CORPUSCULAR VOLUME e CW1 ([facility]ly [facility]) 17.0 13.5-17.5 HEMOGLOBIN eCW1 ([facility]ly [facility]) 47.6 42.0-52.0 HEMATOCRIT eCW1 ([facility]ly [facility]) 34.3 27.0-33.0 MEAN CORPUSCULAR HEMOGLOB IN eCW1 ([facility]ly [facility]) 35.7 32.0-36.5 MEAN CORPUSCULAR HGB CONC eCW1 ([facility]ly [facility]) 12.4 11.5-14.5 RED CELL DISTRIBUTION WID TH eCW1 ([facility]ly [facility]) 232 150-450 PLATELET COUNT, AUTOMATED eCW1 ([facility]ly [facility]) 5.6 0.0-5.0 MONO % eCW1 ([facility]) 2.2 0.0-3.0 EOS % eCW1 ([facility]) 73.4 36.0-66.0 NEUTROPHILS % eCW1 ([facility]) 17.8 24.0-44.0 LYMPH % eCW1 ([facility]) 8.2 1.5-8.5 NEUTROPHILS # eCW1 ([facility]) 0.6 0.0-0.8 MONO # eCW1 ([facility]) 2.0 1.5-5.0 LYMPH # eCW1 ([facility]) 0.5 0.0-1.0 BASO % eCW1 ([facility]) 0.1 0.0-0.2 BASO # eCW1 ([facility]) 0.3 0.0-0.5 EOS # eCW1 ([facility]) Procedure Social History Code Duration Value Status Description Data Source(s ) Smoking 08/24/2020 12:00:00 AM EST Current Smoker completed Curre nt Smoker eCW1 (Formerly [facility]) Smoking 08/24/2020 12:00:00 AM EST Current Smoker completed Curre nt Smoker eCW1 (Formerly [facility]) Smoking 08/24/2020 12:00:00 AM EST Current Smoker completed Curre nt Smoker eCW1 (Formerly [facility]) Smoking 08/24/2020 12:00:00 AM EST Current Smoker completed Curre nt Smoker eCW1 (Formerly [facility]) Smoking 08/24/2020 12:00:00 AM EST Current Smoker completed Curre nt Smoker eCW1 (Formerly [facility]) Smoking 08/24/2020 12:00:00 AM EST Current Smoker completed Curre nt Smoker eCW1 (Formerly [facility]) Smoking 07/19/2020 12:00:00 AM EDT Current Smoker completed Curre nt Smoker eCW1 (Formerly [facility]) Smoking 07/19/2020 12:00:00 AM EDT Current Smoker completed Curre nt Smoker eCW1 (Formerly [facility]) Smoking 07/19/2020 12:00:00 AM EDT Current Smoker completed Curre nt Smoker eCW1 (Formerly [facility]) Smoking 03/14/2020 12:00:00 AM EDT Current Smoker completed Curre nt Smoker eCW1 (Formerly [facility]) Smoking 03/14/2020 12:00:00 AM EDT Current Smoker completed Curre nt Smoker eCW1 (Formerly [facility]) Smoking 03/14/2020 12:00:00 AM EDT Current Smoker completed Curre nt Smoker eCW1 (Formerly [facility]) Smoking 03/14/2020 12:00:00 AM EDT Current Smoker completed Curre nt Smoker eCW1 (Formerly [facility]) Vital Signs ID Date Data Source UNK Name Value Range Interpretation Code Description Data Source(s) Body weight 88.906 kg 88.906 kg MEDENT ([facility]) Body weight 196.00 [lb_av] 196.00 [lb_av] MEDEN T ([facility]) Oxygen saturation in Arterial blood by Pulse oximetry 98 % 98 % [facility] ([facility]) Body temperature 96.8 [degF] 96.8 [degF] [facility] ([facility]) Heart rate 62 /min 62 /min [facility] ([facility]) Diastolic blood pressure 74 mm[Hg] 74 mm[Hg] [facility] ([facility]) Systolic blood pressure 128 mm[Hg] 128 mm[Hg] [facility] Body surface area Derived from formula 2.04 m2 2.04 m2 [facility] ([facility]) Body weight 88.452 kg 88.452 kg [facility] ([facility]) [place] body weight 160 [lb_av] 160 [lb_av] MEDEN T ([facility]) Body mass index (BMI) [Ratio] 28.8 kg/m2 28.8 k g/m2 [facility] ([facility]) Body weight 195.00 [lb_av] 195[facility]00 [lb_av] [facility] Body height 69 [in_i] 69 [in_i] [facility] ([facility]) 5'9" Diastolic blood pressure 86 mm[Hg] 86 mm[Hg] [facility] ([facility]) Systolic blood pressure 128 mm[Hg] 128 mm[Hg] M EDENT ([facility], ) Heart rate 125 /min 125 /min eCW1 ([facility]) Body mass index (BMI) [Ratio] 28.62 kg/m2 28.62 kg/m2 W1 ([facility]) Body height 69 [in_i] 69 [in_i] eCW1 ([facility]) Body weight 87.9 kg 87.9 kg eCW1 ([facility]) Body weight 193.8 [lb_av] 193.8 [lb_av] eCW1 ([facility]) Diastolic blood pressure 66 mm[Hg] 66 mm[Hg] eCW1 ([facility]) Systolic blood pressure 122 mm[Hg] 122 mm[Hg] e CW1 ([facility]) Body temperature 97.7 [degF] 97.7 [degF] eCW1 ( [facility]) Respiratory rate 20 /min 20 /min eCW1 ([facility]) Oxygen saturation in Arterial blood by Pulse oximetry 98 % 98 % MEDENT ([facility]) Respiratory rate 20 /min 20 /min MEDENT ( [facility]) Body temperature 97.5 [degF] 97.5 [degF] MEDENT ([facility]) Heart rate 105 /min 105 /min MEDENT ([facility]) Diastolic blood pressure 84 mm[Hg] 84 mm[Hg] MEDENT ([facility]) Systolic blood pressure 126 mm[Hg] 126 mm[Hg] M EDENT ([facility]) Diastolic blood pressure 64 mm[Hg] 64 mm[Hg] eCW1 ([facility]) Systolic blood pressure 122 mm[Hg] 122 mm[Hg] e CW1 ([facility]) Body temperature 97.5 [degF] 97.5 [degF] eCW1 ( [facility]) Respiratory rate 20 /min 20 /min eCW1 ([facility]) Heart rate 121 /min 121 /min eCW1 ([facility]) Body mass index (BMI) [Ratio] 28.70 kg/m2 28.70 kg/m2 eCW1 ([facility]) Body height 69 [in_i] 69 [in_i] eCW1 ([facility]) Body weight 88.2 kg 88.2 kg eCW1 ([facility]) Body weight 194.4 [lb_av] 194.4 [lb_av] eCW1 ([facility]) Body weight 86.184 kg 86.184 kg MEDENT ([facility]) Body weight 190.00 [lb_av] 190.00 [lb_av] MEDEN T ([facility]) Oxygen saturation in Arterial blood by Pulse oximetry 97 % 97 % MEDENT ([facility]) Respiratory rate 20 /min 20 /min MEDENT ( [facility]) Heart rate 100 /min 100 /min MEDENT ([facility]) Diastolic blood pressure 84 mm[Hg] 84 mm[Hg] MEDENT ([facility]) Systolic blood pressure 130 mm[Hg] 130 mm[Hg] M EDENT ([facility]) Diastolic blood pressure 72 mm[Hg] 72 mm[Hg] eCW1 ([facility]) Systolic blood pressure 130 mm[Hg] 130 mm[Hg] e CW1 ([facility]) Body temperature 98.7 [degF] 98.7 [degF] eCW1 ( [facility]) Respiratory rate 20 /min 20 /min eCW1 ([facility]) Heart rate 109 /min 109 /min eCW1 ([facility]) Body mass index (BMI) [Ratio] 28.82 kg/m2 28.82 kg/m2 eCW1 ([facility]) Body height 69 [in_i] 69 [in_i] eCW1 ([facility]) Body weight 195.2 [lb_av] 195.2 [lb_av] eCW1 ([facility]) Diastolic blood pressure 74 mm[Hg] 74 mm[Hg] eCW1 ([facility]) Systolic blood pressure 122 mm[Hg] 122 mm[Hg] e CW1 ([facility]) Body temperature 98.2 [degF] 98.2 [degF] eCW1 ( [facility]) Respiratory rate 20 /min 20 /min eCW1 ([facility]) Heart rate 107 /min 107 /min eCW1 ([facility]) Body mass index (BMI) [Ratio] 29.00 kg/m2 29.00 kg/m2 eCW1 ([facility]) Body height 69 [in_us] 69 [in_us] eCW1 ([facility]) Body weight Measured 196.4 [lb_av] 196.4 [lb_av ] eCW1 ([facility]) Diastolic blood pressure 62 mm[Hg] 62 mm[Hg] eCW1 ([facility]) Systolic blood pressure 120 mm[Hg] 120 mm[Hg] e CW1 ([facility]) Body temperature 98.5 [degF] 98.5 [degF] eCW1 ( [facility]) Respiratory rate 18 /min 18 /min eCW1 ([facility]) Heart rate 105 /min 105 /min eCW1 ([facility]) Body mass index (BMI) [Ratio] 28.23 kg/m2 28.23 kg/m2 W1 ([facility]) Body height 69 [in_us] 69 [in_us] eCW1 ([facility]) Body weight Measured 191.2 [lb_av] 191.2 [lb_av ] eCW1 ([facility]) Diastolic blood pressure 64 mm[Hg] 64 mm[Hg] eCW1 ([facility]) Systolic blood pressure 122 mm[Hg] 122 mm[Hg] e CW1 ([facility]) Body temperature 98.5 [degF] 98.5 [degF] eCW1 ( [facility]) Respiratory rate 18 /min 18 /min eCW1 ([facility]) Heart rate 95 /min 95 /min eCW1 ([facility]) Body mass index (BMI) [Ratio] 27.46 kg/m2 27.46 kg/m2 eCW1 ([facility]) Body height 69 [in_us] 69 [in_us] eCW1 ([facility]) Body weight Measured 186.0 [lb_av] 186.0 [lb_av ] eCW1 ([facility]) ID Date Data Source [id number] 08/16/2020 10:18:57 AM EST [facility] Name Value Range Interpretation Code Description Data Source(s) WEIGHT RECORDED 188.00 pounds 188.00 [address] [facility] Height 69 Inches 069 Inches [facility] Patient Treatment Plan of Care Planned Activity Planned Date Details Description Data Source (s) Methotrexate 2.5 MG Oral Tablet 03/14/2020 12:00:00 AM EDT eCW1 ([facility]) Folic Acid 1 MG Oral Tablet 03/14/2020 12:00:00 AM EDT eCW1 ([facility]) Methotrexate 2.5 MG Oral Tablet 03/14/2020 12:00:00 AM EDT eCW1 ([facility]) Folic Acid 1 MG Oral Tablet 03/14/2020 12:00:00 AM EDT eCW1 ([facility]) Methotrexate 2.5 MG Oral Tablet 03/14/2020 12:00:00 AM EDT eCW1 ([facility]) Folic Acid 1 MG Oral Tablet 03/14/2020 12:00:00 AM EDT eCW1 ([facility]) Methotrexate 2.5 MG Oral Tablet 03/14/2020 12:00:00 AM EDT eCW1 ([facility]) Folic Acid 1 MG Oral Tablet 03/14/2020 12:00:00 AM EDT eCW1 ([facility]) Sulfasalazine 500 MG Oral Tablet 11/12/2019 12:00:00 AM EST eCW1 ([facility]) Hydroxychloroquine Sulfate 200 MG Oral Tablet 11/12/2019 12:00:00 A M EST eCW1 ([facility]) Enbrel Mini 50 MG/ML 11/04/2019 12:00:00 AM EST eCW1 ([facility]) Enbrel Mini 50 MG/ML 11/04/2019 12:00:00 AM EST eCW1 ([facility]) Enbrel Mini 50 MG/ML 11/04/2019 12:00:00 AM EST eCW1 ([facility]) Enbrel Mini 50 MG/ML 11/04/2019 12:00:00 AM EST eCW1 ([facility]) Enbrel Mini 50 MG/ML 11/04/2019 12:00:00 AM EST eCW1 ([facility]) Enbrel Mini 50 MG/ML 11/04/2019 12:00:00 AM EST eCW1 ([facility]) Enbrel Mini 50 MG/ML 11/04/2019 12:00:00 AM EST eCW1 ([facility]) Methylprednisolone 4 MG Oral Tablet [Medrol] 10/21/2019 12:00:00 AM EST eCW1 ([facility]) Medrol 4 MG 10/21/2019 12:00:00 AM EST e CW1 ([facility])
--- NOTE | 2020-10-27 10:14 | ROOR ---
Patient Name: Wade Mcgrath Procedure Date: 10/27/2020 9:36 AM Date of : 1965 Age: 55 Room: [facility] Gender: Male Note Status: Finalized Procedure: Colonoscopy Indications: Screening for colorectal malignant neoplasm Providers: Moy Urbina MD Referring MD: Krista Mayers MD Requesting Provider: Medicines: Monitored Anesthesia Care Complications: No immediate complications. Procedure: Pre-Anesthesia Assessment: - Prior to the procedure, a History and Physical was performed, and patient medications and allergies were reviewed. The patient is competent. The risks and benefits of the procedure and the sedation options and risks were discussed with the patient. All questions were answered and informed consent was obtained. Patient identification and proposed procedure were verified by the physician, the nurse and the anesthesiologist in the procedure room. Mental Status Examination: alert and oriented. Airway Examination: normal oropharyngeal airway and neck mobility. Respiratory Examination: clear to auscultation. CV Examination: normal. Prophylactic Antibiotics: The patient does not require prophylactic antibiotics. Prior Anticoagulants: The patient has taken no previous anticoagulant or antiplatelet agents. ASA Grade Assessment: II - A patient with mild systemic disease. After reviewing the risks and benefits, the patient was deemed in satisfactory condition to undergo the procedure. The anesthesia plan was to use monitored anesthesia care (MAC). Immediately prior to administration of medications, the patient was re-assessed for adequacy to receive sedatives. The heart rate, respiratory rate, oxygen saturations, blood pressure, adequacy of pulmonary ventilation, and response to care were monitored throughout the procedure. The physical status of the patient was re-assessed after the procedure. The Colonoscope was introduced through the anus and advanced to the cecum, identified by appendiceal orifice and ileocecal valve. The colonoscopy was performed without difficulty. The patient tolerated the procedure well. The quality of the bowel preparation was good. The terminal ileum, ileocecal valve, appendiceal orifice, and rectum were photographed. Scope insertion time was 2 minutes. Scope withdrawal time was 12 minutes. The total duration of the procedure was 14 minutes. Findings: The perianal and digital rectal examinations were normal. The terminal ileum appeared normal. Six sessile polyps were found in the recto-sigmoid colon, transverse colon and ascending colon. The polyps were 4 to 10 mm in size. These polyps were removed with a hot snare. Resection and retrieval were complete. Verification of patient identification for the specimen was done by the physician and nurse using the patient's name, date and medical record number. Estimated blood loss was minimal. Non-bleeding external and internal hemorrhoids were found during retroflexion. The hemorrhoids were medium-sized. Impression: - The examined portion of the ileum was normal. - Six 4 to 10 mm polyps at the recto-sigmoid colon, in the transverse colon and in the ascending colon, removed with a hot snare. Resected and retrieved. - Non-bleeding external and internal hemorrhoids. Recommendation: - Patient has a contact number available for emergencies. The signs and symptoms of potential delayed complications were discussed with the patient. Return to normal activities tomorrow. Written discharge instructions were provided to the patient. - High fiber diet. - Continue present medications. - Await pathology results. - Repeat colonoscopy in 3 years for surveillance based on pathology results. - Use fiber, for example Citrucel, Fibercon, Konsyl or Metamucil. - Telephone GI clinic for pathology results in 2 weeks. - Return to primary care physician. Procedure Code(s): --- Professional --- 75958, Colonoscopy, flexible; with removal of tumor(s), polyp(s), or other lesion(s) by snare technique Diagnosis Code(s): --- Professional --- Z12.11, Encounter for screening for malignant neoplasm of colon K64.8, Other hemorrhoids K63.5, Polyp of colon CPT copyright 2019 [employer]. All rights reserved. The codes documented in this report are preliminary and upon thermal spray operator review may be revised to meet current compliance requirements. Moy Urbina MD Moy Urbina MD 10/27/2020 10:14:16 AM Electronically signed by Moy Urbina MD Number of Addenda: 0 Note Initiated On: 10/27/2020 9:36 AM Estimated Blood Loss: Estimated blood loss was minimal.
[2020-10-27 10:27] VITALS: BP 107/74
== END 2020-10-27 10:32 | disposition home or self-care (01) ==
LOC: M OPP 08:36
PROVIDERS: ATTEND Internal Medicine Gastroenterology
DX: Z12.11 Encounter for screening for malignant neoplasm of colon (principal); K63.5 Polyp of colon; K64.8 Other hemorrhoids

== ENCOUNTER → 2021-01-11 | Outpatient (REF) | payer BC ==
[~2021-01-11] MED LIST changes: -LIDOCAINE 2% 100MG/5ML SDV (FOR ANES.) As Ordered ONE; -NS 1,000 ML IV ONE; -propofoL 200 MG/20 ML VIAL As Ordered ONE
[2021-01-11 17:24] LABS: ALT/SGPT 41 U/L (12-78); BILIRUBIN,TOTAL 1.9 MG/DL (0.2-1.0); BLOOD UREA NITROGEN 9 MG/DL (7-18); CALCIUM LEVEL 9.3 MG/DL (8.5-10.1); CARBON DIOXIDE LEVEL 30 MEQ/L (21-32); CHLORIDE LEVEL 101 MEQ/L (98-107); CREATININE FOR GFR 0.96 MG/DL (0.70-1.30); GLOMERULAR FILTRATION RATE > 60.0 (>56); GLUCOSE, FASTING 90 MG/DL (70-100); POTASSIUM SERUM 4.6 MEQ/L (3.5-5.1); SODIUM LEVEL 135 MEQ/L (136-145); TOTAL PROTEIN 7.4 GM/DL (6.4-8.2)
[2021-01-11 17:33] LABS: BASO % 0.5 % (0.0-1.0); EOS # 0.3 10^3/uL (0.0-0.5); EOS % 4.1 % (0.0-3.0); HEMATOCRIT 49.9 % (42.0-52.0); HEMOGLOBIN 17.4 g/dl (13.5-17.5); LYMPH # 1.7 10^3/uL (1.5-5.0); LYMPH % 23.5 % (24.0-44.0); MEAN CORPUSCULAR HEMOGLOBIN 34.8 pg (27.0-33.0); MEAN CORPUSCULAR HGB CONC 34.9 g/dl (32.0-36.5); MEAN CORPUSCULAR VOLUME 99.8 fl (80.0-96.0); MONO # 0.6 10^3/uL (0.0-0.8); MONO % 8.6 % (2.0-8.0); NEUTROPHILS # 4.6 10^3/uL (1.5-8.5); NEUTROPHILS % 62.9 % (36.0-66.0); PLATELET COUNT, AUTOMATED 220 10^3/uL (150-450); WHITE BLOOD COUNT 7.3 10^3/uL (4.0-10.0)
[2021-01-11 18:12] LABS: ERYTHROCYTE SEDIMENTATION RATE 3 mm/hr (0-20)
== END ==
LOC: M SFHCRHEU 14:05
PROVIDERS: ATTEND Internal Medicine Rheumatology
DX: M06.09 Rheumatoid arthritis without rheumatoid factor, multiple sites (principal)

== ENCOUNTER → 2021-09-20 | Outpatient (CLI) | payer BC | LOC: M PLALAB 08:52 | PROVIDERS: ATTEND Physician Assistant | DX: Z12.5 Encounter for screening for malignant neoplasm of prostate (principal) ==

== ENCOUNTER → 2021-12-27 | Outpatient (REF) | payer MEDICARE, BC ==
[2021-12-27 12:18] LABS: BASO # 0.1 10^3/uL (0.0-0.2); BASO % 0.7 % (0.0-1.0); EOS # 0.5 10^3/uL (0.0-0.5); EOS % 5.8 % (0.0-3.0); HEMATOCRIT 46.5 % (42.0-52.0); HEMOGLOBIN 16.1 g/dl (13.5-17.5); LYMPH # 3.2 10^3/uL (1.5-5.0); LYMPH % 37.3 % (24.0-44.0); MEAN CORPUSCULAR HEMOGLOBIN 34.4 pg (27.0-33.0); MEAN CORPUSCULAR HGB CONC 34.6 g/dl (32.0-36.5); MEAN CORPUSCULAR VOLUME 99.4 fl (80.0-96.0); MONO # 0.7 10^3/uL (0.0-0.8); MONO % 8.6 % (2.0-8.0); NEUTROPHILS % 47.1 % (36.0-66.0); PLATELET COUNT, AUTOMATED 227 10^3/uL (150-450); RED BLOOD COUNT 4.68 10^6/uL (4.30-6.10); WHITE BLOOD COUNT 8.5 10^3/uL (4.0-10.0)
[2021-12-27 12:50] LABS: ALBUMIN 3.8 GM/DL (3.2-5.2); ALT/SGPT 39 U/L (12-78); BLOOD UREA NITROGEN 12 MG/DL (7-18); CARBON DIOXIDE LEVEL 28 MEQ/L (21-32); CHLORIDE LEVEL 104 MEQ/L (98-107); GLOMERULAR FILTRATION RATE > 60.0 (>56); GLUCOSE, FASTING 106 MG/DL (70-100); POTASSIUM SERUM 3.9 MEQ/L (3.5-5.1); SODIUM LEVEL 137 MEQ/L (136-145); TOTAL PROTEIN 6.8 GM/DL (6.4-8.2)
[2021-12-27 12:54] LABS: ERYTHROCYTE SEDIMENTATION RATE 4 mm/hr (0-20)
== END ==
LOC: M SFHCRHEU 08:58
PROVIDERS: ATTEND Internal Medicine Rheumatology
DX: M06.4 Inflammatory polyarthropathy (principal)

== ENCOUNTER → 2022-01-30 | Outpatient (CLI) | payer MEDICARE | LOC: M RAD 09:31 | PROVIDERS: ATTEND Family Medicine | DX: Z12.2 Encounter for screening for malignant neoplasm of respiratory organs (principal); F17.210 Nicotine dependence, cigarettes, uncomplicated ==

== ENCOUNTER → 2022-06-28 | Outpatient (REF) | payer MEDICARE, BC ==
[~2022-06-28] MED LIST changes: -ENBR50IN6 IM; +ETAN50CA IM
[2022-06-28 12:24] LABS: BASO % 0.4 % (0.0-1.0); EOS # 0.5 10^3/uL (0.0-0.5); EOS % 5.9 % (0.0-3.0); HEMATOCRIT 49.6 % (42.0-52.0); HEMOGLOBIN 16.9 g/dl (13.5-17.5); LYMPH # 2.1 10^3/uL (1.5-5.0); LYMPH % 25.4 % (24.0-44.0); MEAN CORPUSCULAR HEMOGLOBIN 33.9 pg (27.0-33.0); MEAN CORPUSCULAR HGB CONC 34.1 g/dl (32.0-36.5); MEAN CORPUSCULAR VOLUME 99.4 fl (80.0-96.0); MONO # 0.7 10^3/uL (0.0-0.8); MONO % 8.7 % (2.0-8.0); NEUTROPHILS % 58.9 % (36.0-66.0); PLATELET COUNT, AUTOMATED 226 10^3/uL (150-450); RED BLOOD COUNT 4.99 10^6/uL (4.30-6.10); WHITE BLOOD COUNT 8.4 10^3/uL (4.0-10.0)
[2022-06-28 12:52] LABS: ERYTHROCYTE SEDIMENTATION RATE 2 mm/hr (0-20)
[2022-06-28 13:06] LABS: ALBUMIN 3.5 GM/DL (3.2-5.2); ALT/SGPT 35 U/L (12-78); BILIRUBIN,TOTAL 1.2 MG/DL (0.2-1.0); BLOOD UREA NITROGEN 15 MG/DL (7-18); C REACTIVE PROTEIN QUANTITATIV 0.42 MG/DL (0.00-0.30); CALCIUM LEVEL 8.5 MG/DL (8.5-10.1); CARBON DIOXIDE LEVEL 28 MEQ/L (21-32); CHLORIDE LEVEL 102 MEQ/L (98-107); CHOLESTEROL LEVEL 145 MG/DL (<200); CHOLESTEROL RISK RATIO 2.101 (<5); GLOMERULAR FILTRATION RATE > 60.0 (>56); GLUCOSE, FASTING 116 MG/DL (70-100); HDL CHOLESTEROL 69 MG/DL (>40); LDL CHOLESTEROL 60 MG/DL (<100); NON-HDL-C 76 MG/DL; POTASSIUM SERUM 3.9 MEQ/L (3.5-5.1); SODIUM LEVEL 135 MEQ/L (136-145); TOTAL PROTEIN 6.9 GM/DL (6.4-8.2); TRIGLYCERIDES LEVEL 81 MG/DL (<150)
== END ==
LOC: M SFHCRHEU 08:54
PROVIDERS: ATTEND Internal Medicine Rheumatology
DX: M06.09 Rheumatoid arthritis without rheumatoid factor, multiple sites (principal); Z79.899 Other long term (current) drug therapy; I73.00 Raynaud's syndrome without gangrene; F17.200 Nicotine dependence, unspecified, uncomplicated; Z13.220 Encounter for screening for lipoid disorders

== ENCOUNTER → 2022-10-11 | Outpatient (CLI) | payer MEDICARE | LOC: M LAB 10:39 | PROVIDERS: ATTEND Physician Assistant | DX: R39.12 Poor urinary stream (principal); Z12.5 Encounter for screening for malignant neoplasm of prostate ==

== ENCOUNTER → 2022-10-11 | Outpatient (CLI) | payer MEDICARE ==
[2022-10-11 11:33] LABS: HEMOGLOBIN A1c 4.8 % (4.0-6.0)
[2022-10-11 12:09] LABS: FOLATE 8.9 NG/ML (>5.4); VITAMIN B12 LEVEL 966 PG/ML (211-911)
[2022-10-16 20:07] LABS: ALBUMIN 3.8 g/dL (2.9-4.4); ALPHA-1-GLOBULINS 0.3 g/dL (0.0-0.4); ALPHA-2-GLOBULINS 0.7 g/dL (0.4-1.0); BETA-1-GLOBULINS 1.1 g/dL (0.7-1.3); GAMMA GLOBULINS 1.2 g/dL (0.4-1.8); TOTAL PROTEIN ELECTROPHORESIS 7.1 g/dL (6.0-8.5)
[2022-10-16 23:07] LABS: CERULOPLASMIN 24.6 mg/dL (16.0-31.0); VITAMIN B1 LEVEL WHOLE BLOOD 151.8 nmol/L (66.5-200.0); VITAMIN B6,PYRIDOXAL PHOSPHATE 8.1 ug/L (3.4-65.2); VITAMIN E(ALPHA TOCOPHEROL) 6.2 mg/L (7.0-25.1); VITAMIN E(GAMMA TOCOPHEROL) 1.2 mg/L (0.5-5.5)
== END ==
LOC: M LAB 10:41
PROVIDERS: ATTEND Psychiatry & Neurology Neurology
DX: E11.42 Type 2 diabetes mellitus with diabetic polyneuropathy (principal); E53.8 Deficiency of other specified B group vitamins

== ENCOUNTER → 2022-10-11 | Outpatient (CLI) | payer MEDICARE ==
[2022-10-11 11:20] LABS: BASO # 0.1 10^3/uL (0.0-0.2); BASO % 0.6 % (0.0-1.0); EOS # 0.7 10^3/uL (0.0-0.5); EOS % 8.4 % (0.0-3.0); HEMATOCRIT 48.3 % (42.0-52.0); HEMOGLOBIN 16.7 g/dl (13.5-17.5); LYMPH # 2.4 10^3/uL (1.5-5.0); LYMPH % 31.6 % (24.0-44.0); MEAN CORPUSCULAR HEMOGLOBIN 34.5 pg (27.0-33.0); MEAN CORPUSCULAR HGB CONC 34.6 g/dl (32.0-36.5); MEAN CORPUSCULAR VOLUME 99.8 fl (80.0-96.0); MONO # 0.7 10^3/uL (0.0-0.8); MONO % 9.6 % (2.0-8.0); NEUTROPHILS # 3.8 10^3/uL (1.5-8.5); NEUTROPHILS % 49.4 % (36.0-66.0); PLATELET COUNT, AUTOMATED 204 10^3/uL (150-450); RED BLOOD COUNT 4.84 10^6/uL (4.30-6.10); WHITE BLOOD COUNT 7.7 10^3/uL (4.0-10.0)
[2022-10-11 11:29] LABS: ERYTHROCYTE SEDIMENTATION RATE 9 mm/hr (0-20)
[2022-10-11 11:54] LABS: ALBUMIN 3.5 G/DL (3.2-5.2); ALKALINE PHOSPHATASE 80 U/L (46-116); ALT/SGPT 27 U/L (7.0-40); AST/SGOT 19 U/L (<34); BILIRUBIN,TOTAL 0.9 MG/DL (0.3-1.2); BLOOD UREA NITROGEN 13 MG/DL (9-23); CARBON DIOXIDE LEVEL 26 MMOL/L (20-31); CHLORIDE LEVEL 101 MMOL/L (98-107); CREATININE FOR GFR 0.81 MG/DL (0.70-1.30); GLOMERULAR FILTRATION RATE > 60.0 (>56); GLUCOSE, FASTING 90 MG/DL (60-100); SODIUM LEVEL 135 MMOL/L (136-145); TOTAL PROTEIN 6.7 G/DL (5.7-8.2)
== END ==
LOC: M LAB 10:24
PROVIDERS: ATTEND Internal Medicine Rheumatology
DX: M06.09 Rheumatoid arthritis without rheumatoid factor, multiple sites (principal); I73.00 Raynaud's syndrome without gangrene; F17.200 Nicotine dependence, unspecified, uncomplicated; R20.2 Paresthesia of skin; Z79.899 Other long term (current) drug therapy

== ENCOUNTER → 2023-06-13 | Outpatient (REF) | payer MEDICARE ==
[2023-06-13 11:53] LABS: BASO # 0.1 10^3/uL (0.0-0.2); BASO % 0.6 % (0.0-1.0); EOS # 0.4 10^3/uL (0.0-0.5); EOS % 4.6 % (0.0-3.0); HEMATOCRIT 48.4 % (42.0-52.0); HEMOGLOBIN 16.8 g/dl (13.5-17.5); LYMPH # 2.7 10^3/uL (1.5-5.0); LYMPH % 29.7 % (24.0-44.0); MEAN CORPUSCULAR HEMOGLOBIN 34.9 pg (27.0-33.0); MEAN CORPUSCULAR HGB CONC 34.7 g/dl (32.0-36.5); MEAN CORPUSCULAR VOLUME 100.6 fl (80.0-96.0); MONO # 0.7 10^3/uL (0.0-0.8); MONO % 7.4 % (2.0-8.0); NEUTROPHILS # 5.1 10^3/uL (1.5-8.5); PLATELET COUNT, AUTOMATED 219 10^3/uL (150-450); RED BLOOD COUNT 4.81 10^6/uL (4.30-6.10)
[2023-06-13 12:16] LABS: ALBUMIN 3.4 G/DL (3.2-5.2); ALKALINE PHOSPHATASE 105 U/L (46-116); ALT/SGPT 112 U/L (7.0-40); AST/SGOT 64 U/L (<34); BILIRUBIN,TOTAL 0.8 MG/DL (0.3-1.2); BLOOD UREA NITROGEN 9 MG/DL (9-23); CALCIUM LEVEL 8.6 MG/DL (8.3-10.6); CARBON DIOXIDE LEVEL 30 MMOL/L (20-31); CHLORIDE LEVEL 101 MMOL/L (98-107); CREATININE FOR GFR 0.82 MG/DL (0.70-1.30); GLOMERULAR FILTRATION RATE > 60.0 (>49); GLUCOSE, FASTING 95 MG/DL (74-106); POTASSIUM SERUM 3.8 MMOL/L (3.5-5.1); SODIUM LEVEL 136 MMOL/L (136-145); TOTAL PROTEIN 6.9 G/DL (5.7-8.2)
[2023-06-13 13:10] LABS: ERYTHROCYTE SEDIMENTATION RATE 18 mm/hr (0-20)
== END ==
LOC: M SFHCRHEU 09:33
PROVIDERS: ATTEND Internal Medicine Rheumatology
DX: M06.09 Rheumatoid arthritis without rheumatoid factor, multiple sites (principal); Z79.899 Other long term (current) drug therapy; I73.00 Raynaud's syndrome without gangrene; F17.200 Nicotine dependence, unspecified, uncomplicated; R20.2 Paresthesia of skin

== ENCOUNTER → 2023-09-19 | Outpatient (REF) | payer MEDICARE | LOC: M SFHCRHEU 11:30 | PROVIDERS: ATTEND Internal Medicine Rheumatology | DX: M06.09 Rheumatoid arthritis without rheumatoid factor, multiple sites (principal); Z79.899 Other long term (current) drug therapy; I73.00 Raynaud's syndrome without gangrene; F17.200 Nicotine dependence, unspecified, uncomplicated; R20.2 Paresthesia of skin ==

== ENCOUNTER → 2023-12-16 | Outpatient (CLI) | payer MEDICARE ==
[2023-12-16 18:33] LABS: BASO % 0.5 % (0.0-1.0); EOS # 0.2 10^3/uL (0.0-0.5); EOS % 2.7 % (0.0-3.0); HEMATOCRIT 48.5 % (42.0-52.0); LYMPH # 1.6 10^3/uL (1.5-5.0); LYMPH % 18.5 % (24.0-44.0); MEAN CORPUSCULAR HEMOGLOBIN 34.4 pg (27.0-33.0); MEAN CORPUSCULAR HGB CONC 35.1 g/dl (32.0-36.5); MEAN CORPUSCULAR VOLUME 98.2 fl (80.0-96.0); MONO # 0.7 10^3/uL (0.0-0.8); MONO % 7.5 % (2.0-8.0); NEUTROPHILS # 6.2 10^3/uL (1.5-8.5); NEUTROPHILS % 70.2 % (36.0-66.0); PLATELET COUNT, AUTOMATED 219 10^3/uL (150-450); RED BLOOD COUNT 4.94 10^6/uL (4.30-6.10); WHITE BLOOD COUNT 8.8 10^3/uL (4.0-10.0)
[2023-12-16 18:43] LABS: ERYTHROCYTE SEDIMENTATION RATE 17 mm/hr (0-20)
[2023-12-16 18:58] LABS: ALBUMIN 3.7 G/DL (3.2-5.2); ALKALINE PHOSPHATASE 76 U/L (46-116); ALT/SGPT 27 U/L (7.0-40); AST/SGOT 20 U/L (<34); BILIRUBIN,TOTAL 1.2 MG/DL (0.3-1.2); BLOOD UREA NITROGEN 11 MG/DL (9-23); CALCIUM LEVEL 8.3 MG/DL (8.3-10.6); CARBON DIOXIDE LEVEL 27 MMOL/L (20-31); CHLORIDE LEVEL 101 MMOL/L (98-107); CREATININE FOR GFR 0.79 MG/DL (0.70-1.30); GLOMERULAR FILTRATION RATE > 60.0 (>49); GLUCOSE, FASTING 103 MG/DL (74-106); POTASSIUM SERUM 4.2 MMOL/L (3.5-5.1); SODIUM LEVEL 133 MMOL/L (136-145)
[2023-12-18 15:20] LABS: BILIRUBIN,DIRECT 0.4 MG/DL (<0.4)
== END ==
LOC: M LAB 17:41
PROVIDERS: ATTEND Internal Medicine Rheumatology
DX: M06.09 Rheumatoid arthritis without rheumatoid factor, multiple sites (principal); Z79.899 Other long term (current) drug therapy; I73.00 Raynaud's syndrome without gangrene; F17.200 Nicotine dependence, unspecified, uncomplicated; R20.2 Paresthesia of skin

== ENCOUNTER → 2023-12-16 | Outpatient (CLI) | payer MEDICARE | LOC: M RAD 17:38 | PROVIDERS: ATTEND Physician Assistant | DX: Z12.2 Encounter for screening for malignant neoplasm of respiratory organs (principal); F17.210 Nicotine dependence, cigarettes, uncomplicated ==

== ENCOUNTER → 2024-01-15 | Outpatient (REF) | payer MEDICARE | LOC: M SFHCRHEU 10:16 | PROVIDERS: ATTEND Internal Medicine Rheumatology | DX: M06.09 Rheumatoid arthritis without rheumatoid factor, multiple sites (principal); Z79.899 Other long term (current) drug therapy; I73.00 Raynaud's syndrome without gangrene; F17.200 Nicotine dependence, unspecified, uncomplicated; R20.2 Paresthesia of skin ==

== ENCOUNTER → 2024-04-30 | Outpatient (REF) | payer MEDICARE ==
[2024-04-30 17:47] LABS: ALBUMIN 3.6 G/DL (3.2-5.2); ALKALINE PHOSPHATASE 89 U/L (46-116); ALT/SGPT 57 U/L (7.0-40); AST/SGOT 29 U/L (<34); BILIRUBIN,TOTAL 0.9 MG/DL (0.3-1.2); BLOOD UREA NITROGEN 12 MG/DL (9-23); CALCIUM LEVEL 8.8 MG/DL (8.3-10.6); CARBON DIOXIDE LEVEL 25 MMOL/L (20-31); CHLORIDE LEVEL 100 MMOL/L (98-107); CREATININE FOR GFR 0.89 MG/DL (0.70-1.30); GLOMERULAR FILTRATION RATE > 60.0 (>49); GLUCOSE, FASTING 112 MG/DL (74-106); POTASSIUM SERUM 4.2 MMOL/L (3.5-5.1); SODIUM LEVEL 133 MMOL/L (136-145); TOTAL PROTEIN 6.9 G/DL (5.7-8.2)
[2024-04-30 18:02] LABS: BASO # 0.1 10^3/uL (0.0-0.2); BASO % 0.6 % (0.0-1.0); EOS # 0.4 10^3/uL (0.0-0.5); EOS % 4.2 % (0.0-3.0); HEMOGLOBIN 17.1 g/dl (13.5-17.5); LYMPH # 1.1 10^3/uL (1.5-5.0); LYMPH % 12.4 % (24.0-44.0); MEAN CORPUSCULAR HEMOGLOBIN 34.3 pg (27.0-33.0); MEAN CORPUSCULAR HGB CONC 34.9 g/dl (32.0-36.5); MEAN CORPUSCULAR VOLUME 98.2 fl (80.0-96.0); MONO # 0.7 10^3/uL (0.0-0.8); MONO % 7.6 % (2.0-8.0); NEUTROPHILS # 6.6 10^3/uL (1.5-8.5); NEUTROPHILS % 74.5 % (36.0-66.0); PLATELET COUNT, AUTOMATED 249 10^3/uL (150-450); RED BLOOD COUNT 4.99 10^6/uL (4.30-6.10); WHITE BLOOD COUNT 8.9 10^3/uL (4.0-10.0)
[2024-04-30 18:32] LABS: ERYTHROCYTE SEDIMENTATION RATE 16 mm/hr (0-20)
== END ==
LOC: M SFHCLERA 09:51
PROVIDERS: ATTEND Physician Assistant
DX: M06.09 Rheumatoid arthritis without rheumatoid factor, multiple sites (principal); Z79.899 Other long term (current) drug therapy; I73.00 Raynaud's syndrome without gangrene; F17.200 Nicotine dependence, unspecified, uncomplicated; R20.2 Paresthesia of skin

== ENCOUNTER → 2024-05-21 | Outpatient (REF) | payer MEDICARE | LOC: M SFHCRHEU 12:46 | PROVIDERS: ATTEND Internal Medicine Rheumatology | DX: M06.9 Rheumatoid arthritis, unspecified (principal) ==

== ENCOUNTER → 2024-08-03 | Outpatient (CLI) | payer MEDICARE | LOC: M WHC 10:59 | PROVIDERS: ATTEND Physician Assistant | DX: N63.42 Unspecified lump in left breast, subareolar (principal) | CPT/HCPCS: 77066; G0279 ==

== ENCOUNTER → 2024-08-13 | Outpatient (CLI) | payer MEDICARE ==
[2024-08-13 14:29] LABS: TOTAL IRON BINDING CAPACITY 319 UG/DL (250-425)
[2024-08-13 14:31] LABS: BLOOD UREA NITROGEN 13 MG/DL (9-23); CALCIUM LEVEL 9.5 MG/DL (8.3-10.6); CARBON DIOXIDE LEVEL 28 MMOL/L (20-31); CHLORIDE LEVEL 102 MMOL/L (98-107); CHOLESTEROL LEVEL 153 MG/DL (<200); CHOLESTEROL RISK RATIO 2.71 (<5); CREATININE FOR GFR 0.86 MG/DL (0.70-1.30); FERRITIN 41.9 NG/ML (10.5-307.3); GLOMERULAR FILTRATION RATE > 60.0 (>49); GLUCOSE, FASTING 106 MG/DL (74-106); HDL CHOLESTEROL 56.4 MG/DL (>40); IRON (FE) 107 UG/DL (65-175); LDL CHOLESTEROL 81.2 MG/DL (<100); NON-HDL-C 96.6 MG/DL; PERCENT SATURATION 33.5 % (19.7-50.0); POTASSIUM SERUM 4.5 MMOL/L (3.5-5.1); PSA SCREENING 1.68 NG/ML (< 4.00); SODIUM LEVEL 135 MMOL/L (136-145); TRIGLYCERIDES LEVEL 77 MG/DL (<150)
[2024-08-13 14:32] LABS: TOTAL 25(OH) VITAMIN D 31.1 NG/ML (20.0-100.0); VITAMIN B12 LEVEL 972 PG/ML (211-911)
[2024-08-13 14:34] LABS: BASO % 0.5 % (0.0-1.0); EOS # 0.2 10^3/uL (0.0-0.5); EOS % 2.9 % (0.0-3.0); HEMATOCRIT 49.6 % (42.0-52.0); HEMOGLOBIN 17.4 g/dl (13.5-17.5); MEAN CORPUSCULAR HEMOGLOBIN 34.6 pg (27.0-33.0); MEAN CORPUSCULAR HGB CONC 35.1 g/dl (32.0-36.5); MEAN CORPUSCULAR VOLUME 98.6 fl (80.0-96.0); MONO # 0.6 10^3/uL (0.0-0.8); MONO % 7.2 % (2.0-8.0); NEUTROPHILS # 6.2 10^3/uL (1.5-8.5); NEUTROPHILS % 76.8 % (36.0-66.0); PLATELET COUNT, AUTOMATED 216 10^3/uL (150-450); RED BLOOD COUNT 5.03 10^6/uL (4.30-6.10)
[2024-08-13 14:50] LABS: HEMOGLOBIN A1c 5.2 % (4.0-6.0)
== END ==
LOC: M PLALAB 09:44
PROVIDERS: ATTEND Physician Assistant
DX: Z13.220 Encounter for screening for lipoid disorders (principal); D50.9 Iron deficiency anemia, unspecified; E78.00 Pure hypercholesterolemia, unspecified; Z12.5 Encounter for screening for malignant neoplasm of prostate
CPT/HCPCS: 36415; 80048; 80061; 82306; 82607; 82728; 83036; 83550; 84402; 84403; 85025; G0103

== ENCOUNTER → 2024-08-13 | Outpatient (CLI) | payer MEDICARE ==
[2024-08-13 14:29] LABS: ALBUMIN 3.5 G/DL (3.2-5.2); ALKALINE PHOSPHATASE 82 U/L (40-129); ALT/SGPT 49 U/L (7.0-40); AST/SGOT 23 U/L (<34); BILIRUBIN,DIRECT 0.4 MG/DL (<0.4); BILIRUBIN,TOTAL 1.1 MG/DL (0.3-1.2); BLOOD UREA NITROGEN 13 MG/DL (9-23); CALCIUM LEVEL 9.6 MG/DL (8.3-10.6); CARBON DIOXIDE LEVEL 29 MMOL/L (20-31); CHLORIDE LEVEL 101 MMOL/L (98-107); GLOMERULAR FILTRATION RATE > 60.0 (>49); GLUCOSE, FASTING 103 MG/DL (74-106); POTASSIUM SERUM 4.3 MMOL/L (3.5-5.1); SODIUM LEVEL 136 MMOL/L (136-145); TOTAL PROTEIN 7.4 G/DL (5.7-8.2)
[2024-08-13 14:36] LABS: BASO % 0.5 % (0.0-1.0); EOS # 0.2 10^3/uL (0.0-0.5); HEMATOCRIT 49.2 % (42.0-52.0); HEMOGLOBIN 16.9 g/dl (13.5-17.5); LYMPH # 0.9 10^3/uL (1.5-5.0); LYMPH % 11.4 % (24.0-44.0); MEAN CORPUSCULAR HEMOGLOBIN 33.9 pg (27.0-33.0); MEAN CORPUSCULAR HGB CONC 34.3 g/dl (32.0-36.5); MEAN CORPUSCULAR VOLUME 98.6 fl (80.0-96.0); MONO # 0.6 10^3/uL (0.0-0.8); MONO % 7.1 % (2.0-8.0); NEUTROPHILS # 6.1 10^3/uL (1.5-8.5); NEUTROPHILS % 77.1 % (36.0-66.0); PLATELET COUNT, AUTOMATED 210 10^3/uL (150-450); RED BLOOD COUNT 4.99 10^6/uL (4.30-6.10); WHITE BLOOD COUNT 7.9 10^3/uL (4.0-10.0)
[2024-08-13 14:42] LABS: ERYTHROCYTE SEDIMENTATION RATE 16 mm/hr (0-20)
== END ==
LOC: M PLALAB 09:46
PROVIDERS: ATTEND Internal Medicine Rheumatology
DX: M06.9 Rheumatoid arthritis, unspecified (principal)

== ENCOUNTER → 2024-10-22 | Outpatient (REF) | payer MEDICARE ==
[2024-10-22 19:55] LABS: THYROID STIMULATING HORMONE 6.97 uIU/ML (0.55-4.78)
[2024-10-22 19:56] LABS: FOLLICLE STIMULATING HORMONE 7.9 mIU/ML (1.4-18.1); LUTEINIZING HORMONE 3.7 mIU/ML (1.5-9.3)
[2024-10-22 19:57] LABS: ESTRADIOL 35.9 PG/ML (<39.8); FREE T4 1.14 NG/DL (0.89-1.76)
== END ==
LOC: M SFHCPLAZ 09:57
PROVIDERS: ATTEND Nurse Practitioner Family
DX: N62 Hypertrophy of breast (principal); Z79.899 Other long term (current) drug therapy

== ENCOUNTER → 2024-12-24 | Outpatient (CLI) | payer MEDICARE ==
[2024-12-24 14:56] LABS: FREE T4 1.03 NG/DL (0.89-1.76)
[2024-12-24 14:57] LABS: THYROID STIMULATING HORMONE 6.095 uIU/ML (0.55-4.78)
== END ==
LOC: M PLALAB 10:05
PROVIDERS: ATTEND Nurse Practitioner Family
DX: N62 Hypertrophy of breast (principal); Z79.899 Other long term (current) drug therapy

== ENCOUNTER → 2025-01-14 | Outpatient (CLI) | payer MEDICARE ==
[2025-01-14 15:35] LABS: FREE T4 1.23 NG/DL (0.89-1.76); THYROID STIMULATING HORMONE 3.212 uIU/ML (0.55-4.78)
== END ==
LOC: M LAB 13:52
PROVIDERS: ATTEND Nurse Practitioner Family
DX: N62 Hypertrophy of breast (principal)

== ENCOUNTER → 2025-01-14 | Outpatient (CLI) | payer MEDICARE ==
[2025-01-14 15:05] LABS: BASO # 0.1 10^3/uL (0.0-0.2); BASO % 0.6 % (0.0-1.0); EOS # 0.1 10^3/uL (0.0-0.5); EOS % 1.1 % (0.0-3.0); HEMATOCRIT 48.7 % (42.0-52.0); HEMOGLOBIN 17.1 g/dl (13.5-17.5); LYMPH # 1.2 10^3/uL (1.5-5.0); LYMPH % 13.8 % (24.0-44.0); MEAN CORPUSCULAR HEMOGLOBIN 34.3 pg (27.0-33.0); MEAN CORPUSCULAR HGB CONC 35.1 g/dl (32.0-36.5); MEAN CORPUSCULAR VOLUME 97.6 fl (80.0-96.0); MONO # 0.7 10^3/uL (0.0-0.8); MONO % 7.8 % (2.0-8.0); NEUTROPHILS # 6.5 10^3/uL (1.5-8.5); NEUTROPHILS % 76.1 % (36.0-66.0); PLATELET COUNT, AUTOMATED 263 10^3/uL (150-450); RED BLOOD COUNT 4.99 10^6/uL (4.30-6.10); WHITE BLOOD COUNT 8.5 10^3/uL (4.0-10.0)
[2025-01-14 15:22] LABS: ERYTHROCYTE SEDIMENTATION RATE 10 mm/hr (0-20)
[2025-01-14 15:34] LABS: ALBUMIN 3.6 G/DL (3.2-5.2); ALKALINE PHOSPHATASE 75 U/L (40-129); ALT/SGPT 33 U/L (7.0-40); AST/SGOT 23 U/L (<34); BILIRUBIN,TOTAL 1.4 MG/DL (0.3-1.2); BLOOD UREA NITROGEN 10 MG/DL (9-23); C REACTIVE PROTEIN QUANTITATIV 0.52 MG/DL (<1.0); CARBON DIOXIDE LEVEL 32 MMOL/L (20-31); CHLORIDE LEVEL 98 MMOL/L (98-107); CREATININE FOR GFR 0.86 MG/DL (0.70-1.30); GLOMERULAR FILTRATION RATE > 90.0 (>49); GLUCOSE, FASTING 114 MG/DL (74-106); POTASSIUM SERUM 4.4 MMOL/L (3.5-5.1); SODIUM LEVEL 134 MMOL/L (136-145); TOTAL PROTEIN 7.1 G/DL (5.7-8.2)
== END ==
LOC: M LAB 13:53
PROVIDERS: ATTEND Internal Medicine Rheumatology
DX: M06.9 Rheumatoid arthritis, unspecified (principal)

== ENCOUNTER → 2025-08-01 | Outpatient (REF) | payer MEDICARE ==
[2025-08-01 17:27] LABS: BASO # 0.0 10^3/uL (0.0-0.2); BASO % 0.3 % (0.0-1.0); EOS # 0.1 10^3/uL (0.0-0.5); EOS % 1.0 % (0.0-3.0); LYMPH # 1.1 10^3/uL (1.5-5.0); LYMPH % 12.6 % (24.0-44.0); MONO # 0.7 10^3/uL (0.0-0.8); MONO % 7.4 % (2.0-8.0); NEUTROPHILS # 7.0 10^3/uL (1.5-8.5); NEUTROPHILS % 78.0 % (36.0-66.0); PLATELET COUNT, AUTOMATED 237 10^3/uL (150-450)
[2025-08-01 17:51] LABS: ALT/SGPT 43 U/L (7.0-40); AST/SGOT 30 U/L (<34); C REACTIVE PROTEIN QUANTITATIV 0.63 MG/DL (<1.0); CALCIUM LEVEL 8.7 MG/DL (8.3-10.6); CARBON DIOXIDE LEVEL 31 MMOL/L (20-31); CHLORIDE LEVEL 98 MMOL/L (98-107); CREATININE FOR GFR 0.92 MG/DL (0.70-1.30); GLOMERULAR FILTRATION RATE > 90.0 (>49); POTASSIUM SERUM 4.0 MMOL/L (3.5-5.1); SODIUM LEVEL 138 MMOL/L (136-145)
== END ==
LOC: M SFHCLERA 13:48
PROVIDERS: ATTEND Internal Medicine Rheumatology
DX: M06.9 Rheumatoid arthritis, unspecified (principal)